=== PATIENT | female | born 1960 | race Hispanic/Latino ===

== ENCOUNTER 2017-05-06 09:56 | Emergency (ER) | payer OTHER ==
[2017-05-06 11:05] LABS: Urine Blood NEGATIVE (NEG); Urine Glucose NEGATIVE (NEG); Urine Protein TRACE (NEG); Urine Specific Gravity 1.025 (1.005-1.030)
[2017-05-06] MEDS ORDERED: HYDROCODONE/APAP 5/325 MG TAB ONE (11:27)
--- NOTE | 2017-05-06 11:52 | EDPHYS ---
Physician Documentation [facility] Name: Liset Langford Age: 57 yrs Sex: Female : 1960 Arrival Date: 05/06/2017 Time: 10:00 Bed 16 Private MD: ED Physician Troy Pereira HPI: 05/06 11:39 This 57 yrs old Female presents to ER via Ambulatory with complaints of Leg kb Pain. 11:39 The patient presents with pain, that is acute. The complaints affect the right knee. kb Context: The problem was sustained at home, resulted from an unknown cause, the patient is not able to bear weight, the patient is able to ambulate. Onset: The symptoms/episode began/occurred and became worse today, months ago. Modifying factors: The symptoms are alleviated by nothing. the symptoms are aggravated by weight bearing. Associated signs and symptoms: The patient has no apparent associated signs or symptoms. Treatment prior to arrival includes: no previous treatment. Severity of symptoms: At their worst the symptoms were moderate, in the emergency department the symptoms have improved. The patient has experienced similar episodes in the past. The patient has not recently seen a physician. Pt states she has had right knee pain for a few months, but today she was getting into a truck and felt/heard a loud pop. States she has been seen multiple times at the clinic for this and was supposed to have a x-ray done, but hasn't because of the copay. Historical: - Allergies: 10:13 No Known Allergies; hj - Home Meds: 10:13 carvedilol 6.25 mg oral tab 1 tab 2 times per day [Active]; diclofenac potassium 50 mg hj oral tab 1 tab 3 times per day [Active]; amlodipine 10 mg tab 1 tab once daily [Active]; metformin 1,000 mg Oral tab 1 tab 2 times per day [Active]; lovastatin 10 mg Oral tab 1 tab once daily [Active]; lisinopril 20 mg Oral tab 1 tab twice a day [Active]; - PMHx: 10:13 Hypertension; Diabetes - NIDDM; hj - PSHx: 10:13 Cholecystectomy; Hysterectomy; hj - Immunization history:: Adult Immunizations up to date. - Social history:: Smoking status: Patient/guardian denies using tobacco, never smoked, Patient/guardian denies using alcohol. ROS: 10:43 Constitutional: Negative for fever, chills, and weight loss, Cardiovascular: Negative kb for chest pain, palpitations, and edema, Respiratory: Negative for shortness of breath, cough, wheezing, and pleuritic chest pain, Abdomen/GI: Negative for abdominal pain, nausea, vomiting, diarrhea, and constipation, Back: Negative for injury and pain, Skin: Negative for injury, rash, and discoloration, Neuro: Negative for headache, weakness, numbness, tingling, and seizure. 10:43 MS/extremity: Positive for pain, of the right knee. Exam: 11:39 Constitutional: This is a well developed, well nourished patient who is awake, alert, kb and in no acute distress. Head/Face: Normocephalic, atraumatic. Chest/axilla: Normal chest wall appearance and motion. Nontender with no deformity. No lesions are appreciated. Cardiovascular: Regular rate and rhythm with a normal S1 and S2. No gallops, murmurs, or rubs. Normal PMI, no JVD. No pulse deficits. Respiratory: Lungs have equal breath sounds bilaterally, clear to auscultation and percussion. No rales, rhonchi or wheezes noted. No increased work of breathing, no retractions or nasal flaring. Abdomen/GI: Soft, non-tender, with normal bowel sounds. No distension or tympany. No guarding or rebound. No evidence of tenderness throughout. Skin: Warm, dry with normal turgor. Normal color with no rashes, no lesions, and no evidence of cellulitis. MS/ Extremity: Pulses equal, no cyanosis. Neurovascular intact. Full, normal range of motion. Neuro: Awake and alert, GCS 15, oriented to person, place, time, and situation. Cranial nerves II-XII grossly intact. Motor strength 5/5 in all extremities. Sensory grossly intact. Cerebellar exam normal. Normal gait. Vital Signs: 10:13 BP 149 / 78; Pulse 68; Resp 18; Temp 98.1(TE); Pulse Ox 98% on R/A; Weight 79.83 kg; hj Height 5 ft. 0 in. (152.40 cm); Pain 10/10; 11:12 BP 128 / 79; Pulse 77; Resp 16; Pulse Ox 94% on R/A; mh5 11:53 BP 122 / 68; Pulse 74; Resp 16 S; Pulse Ox 100% on R/A; Pain 6/10; jtb 10:13 Body Mass Index 34.37 (79.83 kg, 152.40 cm) hj MDM: 10:17 Patient medically screened. kb 11:39 Data reviewed: vital signs, nurses notes. Data interpreted: Pulse oximetry: on room air kb is 94 %. Interpretation: normal. Counseling: I had a detailed discussion with the patient and/or guardian regarding: the historical points, exam findings, and any diagnostic results supporting the discharge/admit diagnosis, radiology results, the need for outpatient follow up, a family practitioner, to return to the emergency department if symptoms worsen or persist or if there are any questions or concerns that arise at home. 05/06 10:50 Order name: Urine Dipstick--Ancillary (enter results) ms 05/06 10:50 Order name: Urine --Ancillary (enter results) ms 05/06 10:25 Order name: Knee Right 3 View XRAY kb 05/06 11:05 Order name: Urine --Ancillary; Complete Time: 11:06 [facility] 05/06 11:05 Order name: Urine Dipstick-Ancillary; Complete Time: 11:06 [facility] 05/06 11:52 Order name: Ash Wrap; Complete Time: 12:04 kb Administered Medications: 11:15 Drug: [place] 5 mg-325 mg 1 tabs Route: PO; jl7 11:55 Follow up: Response: No adverse reaction; Pain is decreased jl7 Disposition: 18:44 Co-signature as Attending Physician, Troy Pereira MD. ma2 Disposition: 05/06/17 11:51 Discharged to Home. Impression: Pain in right knee. - Condition is Stable. - Discharge Instructions: Knee Pain, [id number]. - Medication Reconciliation Form, Thank You Letter, Antibiotic Education, Prescription Opioid Use form. - Follow up: Emergency Department; When: As needed; Reason: Worsening of condition. Follow up: Private Physician; When: 2 - 3 days; Reason: Recheck today's complaints, Continuance of care, Re-evaluation by your physician. Signatures: Dis[facility] Janay Traore, JEFFC STEPHANIE-Jaspreet Wilson RN RN hj Leal, Jahala, RN RN jl7 Troy Pereira MD MD ma2 Brody Segura jtb
--- NOTE | 2017-05-06 11:52 | ER ---
Nurse's Notes [facility] Name: Liset Langford Age: 57 yrs Sex: Female : 1960 Arrival Date: 05/06/2017 Time: 10:00 Bed 16 Private MD: Diagnosis: Pain in right knee Presentation: 05/06 10:09 Presenting complaint: Mother states: she went into my husbands truck today, she heard a hj popped on the R knee, so shes says shes hurting from the back of the knee sown to the lower leg; reports swelling and pain of 10/10;. Transition of care: patient was not received from another setting of care. Onset of symptoms was May 06, 2017. Care prior to arrival: None. 10:09 Method Of Arrival: Ambulatory hj 10:09 Acuity: MUSA 4 hj Triage Assessment: 10:13 General: Appears in no apparent distress. uncomfortable, Behavior is calm, cooperative, hj appropriate for age. Pain: Complains of pain in right leg. Historical: - Allergies: 10:13 No Known Allergies; hj - Home Meds: 10:13 carvedilol 6.25 mg oral tab 1 tab 2 times per day [Active]; diclofenac potassium 50 mg hj oral tab 1 tab 3 times per day [Active]; amlodipine 10 mg tab 1 tab once daily [Active]; metformin 1,000 mg Oral tab 1 tab 2 times per day [Active]; lovastatin 10 mg Oral tab 1 tab once daily [Active]; lisinopril 20 mg Oral tab 1 tab twice a day [Active]; - PMHx: 10:13 Hypertension; Diabetes - NIDDM; hj - PSHx: 10:13 Cholecystectomy; Hysterectomy; hj - Immunization history:: Adult Immunizations up to date. - Social history:: Smoking status: Patient/guardian denies using tobacco, never smoked, Patient/guardian denies using alcohol. Screenin:25 Abuse screen: Denies threats or abuse. Denies injuries from another. Nutritional jtb screening: No deficits noted. Nutritional screening: No deficits noted. Tuberculosis screening: No symptoms or risk factors identified. Fall Risk Fall in past 12 months (25 points). Total Miranda Fall Scale indicates Low Risk Score (25-44 pts). Fall prevention measures have been instituted. Placed close to Nursing Station Frequent Obs/Assesments occuring Family Present and informed to notify staff if they need to leave bedside. Assessment: 10:25 General: Appears in no apparent distress. uncomfortable, Behavior is calm, cooperative, jtb appropriate for age. Pain: Complains of pain in right knee Pain does not radiate. Pain currently is 8 out of 10 on a pain scale. at worst was 10 out of 10 on a pain scale. Quality of pain is described as throbbing, Pain began 1 month Is continuous. Neuro: Level of Consciousness is awake, alert, obeys commands, Oriented to person, place, time, situation. Cardiovascular: Patient's skin is warm and dry. Respiratory: Airway is patent Respiratory effort is even, unlabored, Respiratory pattern is regular, symmetrical. GI: No signs and/or symptoms were reported involving the gastrointestinal system. : No signs and/or symptoms were reported regarding the genitourinary system. EENT: No signs and/or symptoms were reported regarding the EENT system. Derm: Skin is intact, Skin is pink, warm \T\ dry. 10:25 Musculoskeletal: Range of motion: limited in right knee. jtb 11:18 Reassessment: Patient appears in no apparent distress at this time. Patient and/or jtb family updated on plan of care and expected duration. Pain level reassessed. Patient is alert, oriented x 3, equal unlabored respirations, skin warm/dry/pink. Pt is resting in bed with family at the bedside. 11:53 Reassessment: Patient appears in no apparent distress at this time. Patient and/or jtb family updated on plan of care and expected duration. Pain level reassessed. Patient is alert, oriented x 3, equal unlabored respirations, skin warm/dry/pink. Reports pain decrease to 6/10 Patient states feeling better. Vital Signs: 10:13 BP 149 / 78; Pulse 68; Resp 18; Temp 98.1(TE); Pulse Ox 98% on R/A; Weight 79.83 kg; hj Height 5 ft. 0 in. (152.40 cm); Pain 10/10; 11:12 BP 128 / 79; Pulse 77; Resp 16; Pulse Ox 94% on R/A; mh5 11:53 BP 122 / 68; Pulse 74; Resp 16 S; Pulse Ox 100% on R/A; Pain 6/10; jtb 10:13 Body Mass Index 34.37 (79.83 kg, 152.40 cm) ED Course: 10:00 Patient arrived in ED. rg4 10:11 Triage completed. hj 10:13 Arm band placed on left wrist. hj 10:17 Janay Traore FNP-C [facility]. kb 10:17 Troy Pereira MD is Attending Physician. kb 10:19 Remy Wynn, RN is Primary Nurse. jl7 10:25 Patient has correct armband on for positive identification. Call light in reach. Pt is jtb sitting in a wheel chair, family is present. Pulse ox on. NIBP on. 10:45 Side rails up X 1. jtb 11:00 X-ray completed. Portable x-ray completed in exam room. Patient tolerated procedure la2 well. 12:05 No provider procedures requiring assistance completed. Patient did not have IV access jtb during this emergency room visit. Administered Medications: 11:15 Drug: [place] 5 mg-325 mg 1 tabs Route: PO; jl7 11:55 Follow up: Response: No adverse reaction; Pain is decreased jl7 Outcome: 11:51 Discharge ordered by MD. kb 12:04 Attestation : I agree with everything documented Brody Segura, Student Nurse. jl7 12:05 Discharged to home ambulatory. jtb 12:05 Condition: stable 12:05 Discharge instructions given to patient, family, Instructed on discharge instructions, follow up and referral plans. Demonstrated understanding of instructions, follow-up care. 12:05 Patient left the ED. jtb Signatures: Janay Traore FNP-C APPLICATION SUPPORT-Ckb Jaspreet London, RN RN Miracle Pinon rg4 Liset Perez [facility] Remy Wynn, RN RN jl7 Mariana Chen la2 Brody Segura jtb Corrections: (The following items were deleted from the chart) 10:15 10:13 Pulse 68bpm; Resp 18bpm; Pulse Ox 98% RA; Temp 98.1F Temporal; 79.83 kg; Height 5 hj ft. 0 in.; BMI: 34.3; Pain 10/10; hj 10:34 10:25 Fall Risk Fall in past 12 months (25 points). Total Miranda Fall Scale indicates jtb Low Risk Score (25-44 pts). Fall prevention measures have been instituted. Side Rails Up X 2 Placed close to Nursing Station Frequent Obs/Assesments occuring Family Present and informed to notify staff if they need to leave bedside jtb
--- NOTE | 2017-05-06 12:31 | RAD REPORT ---
EXAM DESCRIPTION: RAD - Knee Right 3 View - 05/06/2017 11:34 am CLINICAL HISTORY: Right knee pain FINDINGS: No fracture or dislocation is seen. A small joint effusion may be present If the patient continues have symptoms to suggest an occult fracture, ligamentous,tendon or meniscal injury then an MRI would be recommended.
== END 2017-05-06 12:05 | disposition home or self-care (01) ==
LOC: ER 09:56
DX: M25.561 Pain in right knee (principal); I10 Essential (primary) hypertension; E11.9 Type 2 diabetes mellitus without complications
CPT/HCPCS: 81003; 81025; 99283

== ENCOUNTER 2018-05-05 20:08 | Emergency (ER) | payer OTHER ==
--- OUTSIDE RECORDS SUMMARY | 2018-05-05 20:10 | XMS REPORT ---
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 51371837754 18 MG/3ML Apr 16, Active 0.6mg once Subcutaneous 2019 daily x 1wk, Once daily then 1.2mg once daily. May increase to 1.8mg daily if tolerated Results No Known Results Summary Purpose eClinicalWorks Submission
--- OUTSIDE RECORDS SUMMARY | 2018-05-05 20:10 | XMS REPORT ---
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 88303334129 1000 MG Orally Active 1 tablet Twice a day with a meal Lisinopril [facility] 59749959424 20 MG Orally Active 1 tablet Once a day [place] 52513238537 5 MG Orally Once Oct 09, Active 1 tablet a day [address] [facility] 82464380319 20 MG Orally Active 1 tablet Once a day with the evening meal Carvedilol [facility] 68789054790 6.25 MG Orally Active 1 tablet BID Results No Known Results Summary Purpose eClinicalWorks Submission
--- OUTSIDE RECORDS SUMMARY | 2018-05-05 20:10 | XMS REPORT ---
:1960 Author Organization [employer] Care Team Providers Name Role Phone Ok Edmond Provider Role Unavailable Allergies, Adverse Reactions, Alerts Substance Reaction Event Type N.K.D.A. Info Not Available Non Drug Allergy Problems Problem Type Condition Code Onset Dates Condition Status Assessment Screening mammogram, encounter for Z12.31 Active Assessment HTN, goal below 130/80 I10 Active Assessment Encounter for screening for other Z11.59 Active viral diseases Assessment Screening for colon cancer Z12.11 Active Problem Uncontrolled diabetes mellitus type E11.65 Active 2 without complications, unspecified whether [facility] insulin use Problem HTN, goal below 130/80 I10 Active Problem Mixed hyperlipidemia E78.2 Active Assessment Uncontrolled diabetes mellitus type E11.65 Active 2 without complications, 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 Assessment Mixed hyperlipidemia E78.2 Active Assessment Encounter for preventative adult Z00.01 Active health care exam with abnormal findings Medications Medication Code Code Instructions Start End Status Dosage System Date Date Lisinopril [facility] 84045329186 10 MG Orally Active 1 tablet Once a day Carvedilol [facility] 77608961598 6.25 MG Orally Active 1 tablet BID Metformin HCl ND 76741937366 1000 MG Orally Active 1 tablet Twice a day with a meal Lovastatin [facility] 27338420770 10 MG Orally Active 1 tablet Once a day with the evening meal Results No Known Results Summary Purpose eClinicalWorks Submission
--- OUTSIDE RECORDS SUMMARY | 2018-05-05 20:10 | XMS REPORT ---
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 03940322488 5 MG Orally Active 1 tablet Once a day Lisinopril/HCT [facility] 90734664383 20/12.5 PO BID July 03, Active one tablet Z 2019 Pen Olivia [facility] 48206935682 32G X 4 MM Apr 18, Active use once subcutaneous 2018 daily with once daily Victoza Carvedilol [facility] 63557975784 6.25 MG Orally Active 1 tablet BID Tradjenta [facility] 49147465088 5 MG Orally Active 1 tablet Once a day Carvedilol [facility] 67239210392 6.25 MG Orally Active 1 tablet BID Lovastatin [facility] 56989290033 20 MG Orally Active 1 tablet Once a day with the evening meal Victoza [facility] 30702492876 18 MG/3ML Apr 16, Active 0.6mg once Subcutaneous 2019 daily x 1wk, Once daily then 1.2mg once daily. May increase to 1.8mg daily if tolerated Metformin HCl [facility] 49297573200 1000 MG Orally Active 1 tablet Twice a day with a meal Results No Known Results Summary Purpose eClinicalWorks Submission
--- OUTSIDE RECORDS SUMMARY | 2018-05-05 20:10 | XMS REPORT ---
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
--- OUTSIDE RECORDS SUMMARY | 2018-05-05 20:10 | XMS REPORT ---
:1960 Author Organization eClinicalWorks Care Team Providers Name Role Phone Ok Edmond Provider Role Unavailable Allergies No Known Allergies Problems Problem Type Condition Code Onset Dates Condition Status Problem Thrombocytopenia D69.6 Active Problem Mixed hyperlipidemia E78.2 Active Problem Noncompliance with dietary Z91.11 Active restriction Assessment Uncontrolled diabetes mellitus type E11.65 Active 2 without complications, unspecified whether meterman insulin use Problem Uncontrolled diabetes mellitus type E11.65 Active 2 without complications, unspecified whether skilled nursing insulin use Problem HTN, goal below 130/80 I10 Active Medications Medication Code Code Instructions Start End Status Dosage System Date Date Jardiance [facility] 21335643840 10 MG Orally Apr 04, July 03, Inactive 1 tablet Once a day 2018 2018 Victoza [facility] 87529091272 18 MG/3ML Apr 16, Active 0.6 mg once Subcutaneous 2018 weekly for 4 Once weekly weeks, then 1.2mg once weekly. May increase to 1.8mg as tolerated Results No Known Results Summary Purpose eClinicalWorks Submission
--- NOTE | 2018-05-05 22:55 | ER ---
Nurse's Notes [facility] Name: Liset Langford Age: 58 yrs Sex: Female : 1960 Arrival Date: 05/05/2018 Time: 20:08 Bed 17 Private MD: Ok Edmond Diagnosis: Zoster without complications Presentation: 05/05 20:59 Presenting complaint: Patient states: left flank pain x 3 days, denies nausea vomiting, dm5 feels kind of like a rash but there isn't anything there. Transition of care: patient was not received from another setting of care. Onset of symptoms was May 01, 2018. Risk Assessment: Do you want to hurt yourself or someone else? Patient reports no desire to harm self or others. 20:59 Method Of Arrival: Ambulatory dm5 20:59 Acuity: MUSA 3 dm5 21:02 Presenting complaint:. dm5 22:27 Initial Sepsis Screen: Does the patient meet any 2 criteria? No. Patient's initial cc3 sepsis screen is negative. Does the patient have a suspected source of infection? No. Patient's initial sepsis screen is negative. Care prior to arrival: None. Triage Assessment: 21:02 General: Appears in no apparent distress. Behavior is calm, cooperative. Pain: dm5 Complains of pain in left subscapular area, mid back area and left lateral posterior chest. 22:27 Musculoskeletal: Circulation, motion, and sensation intact. Range of motion: intact in cc3 all extremities. Historical: - Allergies: 21:00 No Known Allergies; dm5 - PMHx: 21:00 Diabetes - NIDDM; Hypertension; dm5 - PSHx: 21:00 Hysterectomy; dm5 - Immunization history:: Adult Immunizations not up to date. - Social history:: Smoking status: Patient/guardian denies using tobacco, never smoked. - Ebola Screening: : No symptoms or risks identified at this time. Screenin:27 Abuse screen: Denies threats or abuse. Denies injuries from another. Nutritional cc3 screening: No deficits noted. Tuberculosis screening: No symptoms or risk factors identified. Fall Risk Ambulatory Aid- None/Bed Rest/Nurse Assist (0 pts). Gait- Normal/Bed Rest/Wheelchair (0 pts) Mental Status- Oriented to own ability (0 pts). Assessment: 22:27 General: Appears in no apparent distress. comfortable. Pain: Complains of pain in left cc3 lateral anterior chest and chest and back and left lateral posterior chest and mid back area and left subscapular area. Neuro: Level of Consciousness is awake, alert, obeys commands, Oriented to person, place, time, situation, Appropriate for age. Cardiovascular: Denies chest pain, Patient's skin is warm and dry. Respiratory: Airway is patent Respiratory effort is even, unlabored, Respiratory pattern is regular, symmetrical. GI: Abdomen is round non-distended. : No signs and/or symptoms were reported regarding the genitourinary system. EENT: No signs and/or symptoms were reported regarding the EENT system. Derm: No signs and/or symptoms reported regarding the dermatologic system. Musculoskeletal: Circulation, motion, and sensation intact. Range of motion: intact in all extremities. 23:10 Reassessment: Patient appears in no apparent distress at this time. Patient and/or cc3 family updated on plan of care and expected duration. Pain level reassessed. Patient is alert, oriented x 3, equal unlabored respirations, skin warm/dry/pink. ADARSH Chatman discharged the patient home with prescription given. No IV cannula in situ. Patient left ER vitally stable and ambulatory with her family. Vital Signs: 21:01 BP 181 / 90; Pulse 71; Resp 12; Temp 97.8; Pulse Ox 98% on R/A; Weight 83.01 kg; Height dm5 5 ft. 0 in. (152.40 cm); Pain 8/10; 22:40 BP 169 / 71; Pulse 63; Resp 17 S; Pulse Ox 97% on R/A; cc3 23:00 BP 168 / 69; Pulse 61; Resp 18 S; Pulse Ox 97% on R/A; cc3 21:01 Body Mass Index 35.74 (83.01 kg, 152.40 cm) dm5 ED Course: 20:08 Patient arrived in ED. am2 20:09 Ok Edmond DO is Private Physician. am2 20:41 [facility]urdes New[facility]C [facility] snw 20:41 Trent Bagley MD is Attending Physician. snw 21:00 Triage completed. dm5 21:01 Arm band placed on right wrist. Patient placed in waiting room. dm5 22:27 Joan West is Primary Nurse. cc3 22:27 Patient has correct armband on for positive identification. Bed in low position. Call cc3 light in reach. Side rails up X 1. Pulse ox on. NIBP on. 22:52 Warm blanket given. Pillow given. jp3 22:52 Urine collected: clean catch specimen, clear, reza colored. jp3 22:52 Urine Dipstick--Ancillary (enter results) Sent. jp3 22:52 Urine Microscopic Only Sent. jp3 22:54 Ok Edmond DO is Referral Physician. snw 23:10 No provider procedures requiring assistance completed. Patient did not have IV access cc3 during this emergency room visit. Administered Medications: 23:00 Drug: [place] 5 mg-325 mg 1 tabs Route: PO; cc3 23:10 Follow up: Response: No adverse reaction; Pain is decreased cc3 23:00 Drug: Acyclovir 800 mg Route: PO; cc3 23:10 Follow up: Response: No adverse reaction cc3 Outcome: 22:54 Discharge ordered by MD. snw 23:10 Discharged to home ambulatory, with family. cc3 23:10 Condition: stable 23:10 Discharge instructions given to patient, family, Instructed on discharge instructions, follow up and referral plans. medication usage, Demonstrated understanding of instructions, follow-up care, medications, Prescriptions given X 1. 23:21 Patient left the ED. cc3 Signatures: Tete Low, RN RN dm5 Lurdes Newell, C PROGRAMMER-C C PROGRAMMER-Csnw Jaylyn Mcgraw Jacob jp3 Joan West cc3 Corrections: (The following items were deleted from the chart) 21:03 20:59 Presenting complaint: Patient states: left flank pain x 3 days, denies nausea dm5 vomiting dm5
--- NOTE | 2018-05-05 22:55 | EDPHYS ---
Physician Documentation [facility] Name: Liset Langford Age: 58 yrs Sex: Female : 1960 Arrival Date: 05/05/2018 Time: 20:08 Bed 17 Private MD: Ok Edmond ED Physician Trent Bagley HPI: 05/05 23:38 This 58 yrs old Female presents to ER via Ambulatory with complaints of Flank snw Pain, Back Pain, rib pain. 23:38 The patient complains of pain in the left subscapular area. The pain radiates to the snw left lateral anterior chest. Onset: The symptoms/episode began/occurred suddenly, 2 day(s) ago, and became persistent. Associated signs and symptoms: The patient has no apparent associated signs or symptoms. Severity of pain: At its worst the pain was moderate severe. The patient has not experienced similar symptoms in the past. It is unknown whether or not the patient has recently seen a physician. Historical: - Allergies: 21:00 No Known Allergies; dm5 - PMHx: 21:00 Diabetes - NIDDM; Hypertension; dm5 - PSHx: 21:00 Hysterectomy; dm5 - Immunization history:: Adult Immunizations not up to date. - Social history:: Smoking status: Patient/guardian denies using tobacco, never smoked. - Ebola Screening: : No symptoms or risks identified at this time. ROS: 23:37 Constitutional: Negative for fever, chills, and weight loss, Eyes: Negative for injury, snw pain, redness, and discharge, ENT: Negative for injury, pain, and discharge, Neck: Negative for injury, pain, and swelling, Cardiovascular: Negative for chest pain, palpitations, and edema, Respiratory: Negative for shortness of breath, cough, wheezing, and pleuritic chest pain, Abdomen/GI: Negative for abdominal pain, nausea, vomiting, diarrhea, and constipation, Back: Negative for injury and pain, : Negative for injury, bleeding, discharge, and swelling, Skin: Negative for injury, rash, and discoloration, Neuro: Negative for headache, weakness, numbness, tingling, and seizure. 23:37 MS/extremity: Positive for paresthesias, of the left upper back, axilla, and under left breast with itching and burning pain. Exam: 23:36 Constitutional: This is a well developed, well nourished patient who is awake, alert, snw and in no acute distress. Head/Face: Normocephalic, atraumatic. Eyes: Pupils equal round and reactive to light, extra-ocular motions intact. Lids and lashes normal. Conjunctiva and sclera are non-icteric and not injected. Cornea within normal limits. Periorbital areas with no swelling, redness, or edema. ENT: Nares patent. No nasal discharge, no septal abnormalities noted. Tympanic membranes are normal and external auditory canals are clear. Oropharynx with no redness, swelling, or masses, exudates, or evidence of obstruction, uvula midline. Mucous membranes moist. Neck: Trachea midline, no thyromegaly or masses palpated, and no cervical lymphadenopathy. Supple, full range of motion without nuchal rigidity, or vertebral point tenderness. No Meningismus. Cardiovascular: Regular rate and rhythm with a normal S1 and S2. No gallops, murmurs, or rubs. Normal PMI, no JVD. No pulse deficits. Respiratory: Lungs have equal breath sounds bilaterally, clear to auscultation and percussion. No rales, rhonchi or wheezes noted. No increased work of breathing, no retractions or nasal flaring. Abdomen/GI: Soft, non-tender, with normal bowel sounds. No distension or tympany. No guarding or rebound. No evidence of tenderness throughout. Back: No spinal tenderness. No costovertebral tenderness. Full range of motion. Skin: Warm, dry with normal turgor. Normal color with no rashes, no lesions, and no evidence of cellulitis. MS/ Extremity: Pulses equal, no cyanosis. Neurovascular intact. Full, normal range of motion. Neuro: Awake and alert, GCS 15, oriented to person, place, time, and situation. Cranial nerves II-XII grossly intact. Motor strength 5/5 in all extremities. Sensory grossly intact. Cerebellar exam normal. Normal gait. 23:36 Chest/axilla: Inspection: normal, Palpation: tenderness, that is moderate, of the left lateral posterior chest and left lateral anterior chest. Vital Signs: 21:01 BP 181 / 90; Pulse 71; Resp 12; Temp 97.8; Pulse Ox 98% on R/A; Weight 83.01 kg; Height dm5 5 ft. 0 in. (152.40 cm); Pain 8/10; 22:40 BP 169 / 71; Pulse 63; Resp 17 S; Pulse Ox 97% on R/A; cc3 23:00 BP 168 / 69; Pulse 61; Resp 18 S; Pulse Ox 97% on R/A; cc3 21:01 Body Mass Index 35.74 (83.01 kg, 152.40 cm) dm5 MDM: 22:38 Patient medically screened. snw 23:38 Data reviewed: vital signs, nurses notes. Data interpreted: Pulse oximetry: on room air snw is 97 %. Interpretation: normal. Counseling: I had a detailed discussion with the patient and/or guardian regarding: the historical points, exam findings, and any diagnostic results supporting the discharge/admit diagnosis, the need for outpatient follow up, to return to the emergency department if symptoms worsen or persist or if there are any questions or concerns that arise at home. Special discussion: I have referred the patient to see his PCP for further evaluation of high blood pressure. Based on the history and exam findings, there is no indication for further emergent testing or inpatient evaluation. I discussed with the patient/guardian the need to see the primary care provider for further evaluation of the symptoms. 05/05 22:47 Order name: Urine Microscopic Only fc 05/05 22:50 Order name: Urine Dipstick--Ancillary (enter results) lt1 Administered Medications: 23:00 Drug: [place] 5 mg-325 mg 1 tabs Route: PO; cc3 23:10 Follow up: Response: No adverse reaction; Pain is decreased cc3 23:00 Drug: Acyclovir 800 mg Route: PO; cc3 23:10 Follow up: Response: No adverse reaction cc3 Disposition: 05/06 06:26 Co-signature as Attending Physician, Trent Bagley MD Available for consultation at ps1 all times . Disposition: 05/05/18 22:54 Discharged to Home. Impression: Zoster without complications. - Condition is Stable. - Discharge Instructions: Neuropathic Pain, Shingles. - Prescriptions for Valtrex 1 g Oral Tablet - take 1 tablet by ORAL route every 8 hours for 7 days; 21 tablet. - Medication Reconciliation Form, Thank You Letter, Antibiotic Education, Prescription Opioid Use form. - Follow up: Ok Edmond, DO; When: 2 - 3 days; Reason: Recheck today's complaints, Continuance of care, Re-evaluation by your physician. Follow up: Emergency Department; When: As needed; Reason: Worsening of condition. Signatures: Dispatcher [employer] Tete White, RN RN dm5 Lurdes Newell, EMS EDUCATOR-C EMS EDUCATOR-Csnw Trent Bagley MD MD ps1 Joan West cc3 Corrections: (The following items were deleted from the chart) 05/05 23:21 22:54 05/05/2018 22:54 Discharged to Home. Impression: Zoster without complications. cc3 Condition is Stable. Forms are Medication Reconciliation Form, Thank You Letter, Antibiotic Education, Prescription Opioid Use. Follow up: [facility]; When: 2 - 3 days; Reason: Recheck today's complaints, Continuance of care, Re-evaluation by your physician. Follow up: Emergency Department; When: As needed; Reason: Worsening of condition. snw
[2018-05-05] MEDS ORDERED: HYDROCODONE/APAP 5/325 MG TAB ONE (23:15)
[2018-05-05] MEDS ORDERED: ACYCLOVIR 400 MG TABLET ONE (23:15)
[2018-05-05 23:53] LABS: Urine Bacteria 20-50 /HPF (<20); Urine Culture Reflex Order REFLEXED; Urine RBC <5 /HPF (NONE SEEN); Urine Yeast FEW (NONE SEEN)
[2018-05-05 23:56] LABS: Urine Blood TRACE (NEG); Urine Glucose 2+ (NEG); Urine Protein NEGATIVE (NEG)
== END 2018-05-05 23:21 | disposition home or self-care (01) ==
LOC: ER 20:08
DX: B02.9 Zoster without complications (principal); E11.9 Type 2 diabetes mellitus without complications; I10 Essential (primary) hypertension
CPT/HCPCS: 81003; 81015; 87086; 87088; 99284

== ENCOUNTER 2020-06-24 14:25 | Emergency (ER) | payer BC ==
--- OUTSIDE RECORDS SUMMARY | 2020-06-24 14:28 | XMS REPORT | Continuity of Care Document ---
:1960 Author Organization [facility] t Address [address] [place] [address] Care Team Providers Name Role Phone Unavailable Unavailable Unavailable Problems This patient has no known problems. Allergies, Adverse Reactions, Alerts This patient has no known allergies or adverse reactions. Medications Ordered Filled Start Stop Current Ordering Indication Dosage Frequency Signature Comments Components Source Medication Medication Date Date Medication? Clinician (SIG) Name Name GlipiZIDE GlipiZIDE 0 Yes Ok [address] [facility] 30 minutes [facility] Pen [place] Pen [place] 0 Yes Ok use once [facility] daily with [facility]: Victoza [facility] 00 l [facility] Metformin Metformin Yes Ok [address] [facility] HCl HCl [facility] with a [facility] - meal [facility] Lovastatin Lovastatin Yes Ok [address] [facility] with the [facility] - evening [facility] meal l [facility] Lisinopril- Lisinopril- Yes Ok take one [facility] Hydrochloro Hydrochloro [facility] -1 [facility] - thiazide thiazide tablet(s) Me moria by mouth l twice a Outpati day. ent Clinics Carvedilol Carvedilol Yes Ok [address] [facility] Lovastatin Lovastatin Yes Ok TAKE ONE [facility] (1) [facility] - TABLET(S) [facility] BY MOUTH l ONCE A DAY Outpati WITH THE ent EVENING Clinics MEAL. Immunizations Ordered Filled Immunization Date Status Comments [facility] e Immunization Name Name TDAP > 7 TDAP > 7 2019-05-[address] [facility] - Years-Adacel Years-Adacel 00:00:[address] [facility] Afluria Afluria 2018-11-[address] [facility] - 00:[facility]00 [facility] Procedures This patient has no known procedures. Encounters Start End Encounter Admission Attending Care Care Encounter Source Date/Time Date/Time Type Type Clinicians Facility Department ID 2020-05-05 2020-05-05 Outpatient [facility] [id number] [facility] 2020-02-06 2020-02-06 Outpatient [facility] [id number] [facility] 2019-11-12 2019-11-12 Outpatient [facility] [id number] [facility] 2019-11-07 2019-11-07 [facility] [id number] [facility] 08:50:00 08:50:00 [employer] [facility] l Medicine Outpati ent Clinics 2019-08-08 2019-08-08 [facility] [id number] 15:01:00 15:01:00 [employer] [facility] Medicine Outpati ent Clinics 2019-08-08 2019-08-08 [facility] [id number] 14:52:00 14:52:00 t [employer] [facility] l Medicine Outpati ent Clinics 2019-08-08 2019-08-08 [facility] [id number] [facility] 14:15:00 14:15:00 [employer] [facility] Medicine Outpati ent Clinics 2019-07-01 2019-07-01 [facility] [id number] [facility] 14:23:00 14:23:00 [employer] [facility] Medicine l Medicine Outpati ent Clinics 2019-05-09 2019-05-09 [facility] [id number] 14:30:00 14:30:00 [place] [employer] [address] - [address] [facility] l Medicine Outpati ent Clinics 2019 2019 [facility] [id number] 10:11:00 10:11:00 t [place] [employer] [address] - [address] [facility] Medicine l Medicine Outpati ent Clinics 2019-02-27 2019-02-27 [facility] [id number] 14:27:00 14:27:00 t [place] [employer] [address] - [address] [facility] l Medicine Outpati ent Clinics 2019-02-08 2019-02-08 [facility] [id number] 10:45:00 10:45:00 t [place] [employer] [address] - [address] [facility] Medicine l Medicine Outpati ent Clinics 2019-01-30 2019-01-30 [facility] [id number] 16:53:00 16:53:00 t [place] [employer] - Drive [facility] Medicine l Medicine Outpati ent Clinics 2018-11-02 2018-11-02 [facility] [id number] 09:37:00 09:37:00 t [place] [employer] [address] - [address] [facility] Medicine l Medicine Outpati ent Clinics 2018-11-01 2018-11-01 [facility] [id number] 14:00:00 14:00:00 t [place] [employer] [address] - [address] [facility] Medicine l Medicine Outpati ent Clinics 2018-10-30 2018-10-30 [facility] [id number] 13:58:00 13:58:00 t [place] [employer] [address] - [address] [facility] Medicine l Medicine Outpati ent Clinics 2018-08-02 2018-08-02 [facility] [id number] 10:15:00 10:15:00 t [place] [employer] - Drive [facility] Medicine l Medicine Outpati ent Clinics 2018-05-10 2018-05-10 [facility] [id number] 10:00:00 10:00:00 t [place] [employer] - Drive [facility] Medicine Outpati ent Clinics 2018-04-18 2018-04-18 [facility] [id number] 14:00:00 14:00:00 [place] [address] [employer] - Drive [facility] Medicine Outpati ent Clinics 2018-04-17 2018-04-17 [facility] [id number] 14:52:00 14:52:00 t [place] [employer] - Drive [facility] Medicine Outpati ent Clinics 2018-04-16 2018-04-16 [facility] [id number] [facility] 14:04:00 14:04:00 t [place] [employer] - Drive [facility] Medicine Outpati ent Clinics 2018-04-12 2018-04-12 [facility] [id number] 08:49:00 08:49:00 t [place] [employer] - Drive [facility] Medicine Outpati ent Clinics 2017-10-09 2017-10-09 [facility] [id number] 14:30:00 14:30:00 t [place] [employer] s - Drive [facility] Medicine Outpati ent Clinics 2017-09-20 2017-09-20 [facility] [id number] 13:45:00 13:45:00 t [place] [employer] s - Drive [facility] Medicine Outpati ent Clinics Results This patient has no known results.
[2020-06-24] MEDS ORDERED: ACETAMINOPHEN 500 MG TAB ONE (15:21)
--- NOTE | 2020-06-24 15:32 | RAD REPORT ---
EXAM DESCRIPTION: RAD - Wrist Right 3 View - 06/24/2020 3:14 pm CLINICAL HISTORY: PAINfall with wrist pain COMPARISON: No comparisons FINDINGS: No fracture is identified. There is no dislocation or periosteal reaction noted. Sclerotic or increased bone density changes are present in the lunate bone. This can be an indication of devel oping Keinb[place] disease/AVN of the lunate. This would be unrelated to the acute event. No foreign body or other soft tissue abnormality. IMPRESSION: Negative right wrist examination for fracture or acute finding. Increased density of the lunate bone could be indication of [place] disease/AVN, unrelated to the cu rrent event.
--- NOTE | 2020-06-24 15:33 | RAD REPORT ---
EXAM DESCRIPTION: RAD - Elbow Right 3 View - 06/24/2020 3:14 pm CLINICAL HISTORY: PAIN, fall with elbow pain COMPARISON: None FINDINGS: No fracture is identified and no elevated posterior fat pad. Mild spurring changes are pre sent along the medial margin of the humerus - ulna articulation. There is no dislocation or periostea l reaction noted. No foreign body or other soft tissue abnormality. No other significant finding. IMPRESSION: Negative right elbow examination for fracture or acute finding.
--- NOTE | 2020-06-24 15:35 | RAD REPORT ---
EXAM DESCRIPTION: CT - [id number] - 06/24/2020 3:14 pm CLINICAL HISTORY: headache, fall, head trauma, facial trauma, neck pain COMPARISON: No comparisons TECHNIQUE: Axial 5 mm thick images of the head were obtained. Axial 2 mm thick images of the cervic al spine were obtained with sagittal and coronal reconstruction images generated and reviewed. All CT scans are performed using dose optimization technique as appropriate and may include automated exposure control or mA/KV adjustment according to patient size. FINDINGS: No intracranial hemorrhage, mass, edema or acute intracranial finding. No suspicion for ac tushar infarction. No extra-axial fluid collections. Mastoid air cells and paranasal sinuses are clear. No globe or orbit abnormality seen. Cervical body height and alignment are normal. No disk space narrowing. No fracture or acute bony abn ormality. Central canal detail is inherently limited. No paraspinal mass or hematoma. IMPRESSION: Negative CT head examination for acute or significant finding. Negative CT cervical spine examination for acute or significant finding.
--- NOTE | 2020-06-24 16:03 | ER ---
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 Coronavirus screen: Client denies travel out of the [place] in the last 14 days. At this time, the client does not indicate any symptoms associated with coronavirus-19. Ebola Screen: Patient negative for fever greater than or equal to 101.5 degrees Fahrenheit, and additional compatible Ebola Virus Disease symptoms. Initial Sepsis Screen: Does the patient meet any 2 criteria? No. Patient's initial sepsis screen is negative. Risk Assessment: Do you want to hurt yourself or someone else? Patient reports no desire to harm self or others. Onset of symptoms was June 24, 2020 at 14:15. 14:43 Method Of Arrival: EMS: [facility] 14:43 Acuity: MUSA 3 kl Triage Assessment: 14:53 General: Appears comfortable, well groomed, well developed, Behavior is calm, kl cooperative. Pain: Complains of pain in face and right eye Pain currently is 5 out of 10 on a pain scale. at worst was 8 out of 10 on a pain scale. Pain began 30 min ago. Aggravated by increased activity. EENT: Eyes swelling and bruising noted to right brow. Neuro: No deficits noted. Cardiovascular: No deficits noted. Reports None. Respiratory: No deficits noted. GI: No deficits noted. No signs and/or symptoms were reported involving the gastrointestinal system. : No deficits noted. No signs and/or symptoms were reported regarding the genitourinary system. Derm: Wound noted right elbow Bruising that is bright red, on right supraorbital ridge. Musculoskeletal: Reports pain in heel of left hand. Injury Description: fall. Historical: - Allergies: 14:52 No Known Allergies; kl - Home Meds: 14:52 amlodipine 10 mg tab 1 tab once daily [Active]; diclofenac potassium 50 mg Oral tab 1 kl tab 3 times per day [Active]; lovastatin 10 mg Oral tab 1 tab once daily [Active]; metformin 1,000 mg Oral tab 1 tab 2 times per day [Active]; - PMHx: 14:52 Diabetes - NIDDM; Hypertension; kl - PSHx: 14:52 None; kl - Immunization history:: Client reports receiving the 2nd dose of the Covid vaccine, Last tetanus immunization: not indicated for visit today. does not meet age requirement per her MD. Flu vaccine is up to date. - Social history:: Smoking status: Patient denies any tobacco usage or history of. Screenin:23 Abuse screen: Denies threats or abuse. Nutritional screening: No deficits noted. kl Tuberculosis screening: No symptoms or risk factors identified. Fall Risk Fall in past 12 months (25 points). Assessment: 16:01 General: Appears in no apparent distress. Behavior is calm, cooperative. Pain:. Neuro: kl No deficits noted. Cardiovascular: No deficits noted. Respiratory: No deficits noted. GI: No deficits noted. : No deficits noted. EENT: bruising to right eye. Musculoskeletal: Reports. Vital Signs: 14:43 BP 177 / 69; Pulse 78; Resp 18; Temp 98.1; Pulse Ox 99% ; Pain 8/10; kl 16:02 BP 177 / 77; Pulse 78; Resp 20; Pain 8/10; kl 16:21 BP 168 / 78; Pulse 82; Resp 18; Pulse Ox 99% ; Pain 4/10; kl ED Course: 14:43 Patient arrived in ED. kl 14:43 Ayden Gonzalez PA is PHCP. cp 14:43 Ayden Nicholas MD is Attending Physician. cp 14:46 Triage completed. kl 15:14 XRAY Elbow RIGHT 3 view In Process Unspecified. EDMS 15:14 XRAY Wrist RIGHT 3 view In Process Unspecified. EDMS 15:14 CT Head C Spine In Process Unspecified. EDMS 16:22 Splint applied. sling applied tolerated well. Bandage applied. kl 16:23 No provider procedures requiring assistance completed. Patient did not have IV access kl during this emergency room visit. Administered Medications: 15:05 Drug: Tylenol 1000 mg Route: PO; kl 16:21 Follow up: BP 168 / 78; Pulse 82 bpm; Resp 18 bpm; Pulse Ox 99% ; Pain 4/10 Adult kl Outcome: 16:03 Discharge ordered by . cp 16:23 Discharged to home ambulatory, with family. kl 16:23 Condition: stable 16:23 Discharge instructions given to patient, family, Instructed on discharge instructions, follow up and referral plans. wound care, wrist splint/sling Demonstrated understanding of instructions, follow-up care, medications, wound care, splint care. 17:09 Patient left the ED. aa5 Signatures: Dispatcher [employer] EDJessica Fink RN RN kl Calderon, Audri, RN RN aa5 Ayden Gonzalez, PA ANAIS cp
--- NOTE | 2020-06-24 16:03 | EDPHYS ---
Physician Documentation [facility] Name: Liset Langford Age: 60 yrs Sex: Female : 1960 Arrival Date: 06/24/2020 Time: 14:43 Bed 24 Private MD: MARIAM Physician Ayden Nicholas HPI: 06/24 14:50 This 60 yrs old Female presents to ER via EMS with complaints of Fall. cp 14:50 Details of fall: The patient fell from an upright position, while standing. Onset: The cp symptoms/episode began/occurred just prior to arrival. Associated injuries: The patient sustained injury to the head, contusion, swelling, tenderness, right elbow, abrasion, painful injury, swelling, right wrist, painful injury. Severity of symptoms: in the emergency department the symptoms are unchanged, despite EMS interventions. 14:50 Patient reports loosing balance at local store while in bathroom and falling, striking cp head and right elbow. Historical: - Allergies: 14:52 No Known Allergies; kl - Home Meds: 14:52 amlodipine 10 mg tab 1 tab once daily [Active]; diclofenac potassium 50 mg Oral tab 1 kl tab 3 times per day [Active]; lovastatin 10 mg Oral tab 1 tab once daily [Active]; metformin 1,000 mg Oral tab 1 tab 2 times per day [Active]; - PMHx: 14:52 Diabetes - NIDDM; Hypertension; kl - PSHx: 14:52 None; kl - Immunization history:: Client reports receiving the 2nd dose of the Covid vaccine, Last tetanus immunization: not indicated for visit today. does not meet age requirement per her MD. Flu vaccine is up to date. - Social history:: Smoking status: Patient denies any tobacco usage or history of. ROS: 15:00 Constitutional: Negative for body aches, chills, fever, poor PO intake. cp 15:00 Eyes: Negative for injury, pain, redness, and discharge. cp 15:00 ENT: Negative for ear pain, sore throat, difficulty swallowing, difficulty handling secretions. 15:00 Neck: Negative for pain with movement, pain at rest, stiffness. 15:00 Cardiovascular: Negative for chest pain, palpitations. 15:00 Respiratory: Negative for cough, shortness of breath, wheezing. 15:00 Abdomen/GI: Negative for abdominal pain, nausea, vomiting, and diarrhea. 15:00 Back: Negative for pain at rest, pain with movement. 15:00 MS/extremity: Positive for abrasion, pain, swelling, tenderness, of the right elbow, Negative for decreased range of motion, deformity. 15:00 Neuro: Positive for headache, Negative for altered mental status, loss of consciousness, seizure activity, syncope, weakness. 15:00 All other systems are negative. Exam: 15:05 Constitutional: The patient appears in no acute distress, alert, awake, cp non-diaphoretic, non-toxic, well developed, well nourished. 15:05 Head/face: Noted is ecchymosis, that is mild, of the right supraorbital ridge, cp swelling, that is mild, of the right supraorbital ridge, tenderness, that is mild, of the right supraorbital ridge. 15:05 Eyes: Pupils: equal, round, and reactive to light and accomodation, Extraocular movements: intact throughout, Conjunctiva: normal, no exudate, no injection, Sclera: no appreciated abnormality, Lids and lashes: appear normal, bilaterally. 15:05 ENT: External ear(s): are unremarkable, Ear canal(s): are normal, clear, TM's: dullness, bilaterally, Nose: is normal, Mouth: Lips: moist, Oral mucosa: moist, Posterior pharynx: Airway: no evidence of obstruction, patent. 15:05 Neck: C-spine: vertebral tenderness, is not appreciated, crepitus, is not appreciated, ROM/movement: pain, is not appreciated, limited range of motion, is not appreciated, nuchal rigidity, is not appreciated. 15:05 Chest/axilla: Inspection: normal, Palpation: is normal, no crepitus, no tenderness. 15:05 Cardiovascular: Rate: normal, Rhythm: regular. 15:05 Respiratory: the patient does not display signs of respiratory distress, Respirations: normal, no use of accessory muscles, no retractions, labored breathing, is not present, Breath sounds: are clear throughout, no decreased breath sounds. 15:05 Abdomen/GI: Inspection: abdomen appears normal, Palpation: abdomen is soft and non-tender, in all quadrants. 15:05 Back: pain, is absent, ROM is normal. 15:05 Musculoskeletal/extremity: Extremities: grossly normal except: noted in the right elbow: abrasion, pain, swelling, tenderness, There is no evidence of decreased ROM, deformity, noted in the right wrist: pain, tenderness, no evidence of decreased ROM, deformity, swelling, ROM: full active range of motion, in the right elbow and right wrist, Pulses: noted to be 2+ in the right radial artery, Sensation intact. Vital Signs: 14:43 BP 177 / 69; Pulse 78; Resp 18; Temp 98.1; Pulse Ox 99% ; Pain 8/10; kl 16:02 BP 177 / 77; Pulse 78; Resp 20; Pain 8/10; kl 16:21 BP 168 / 78; Pulse 82; Resp 18; Pulse Ox 99% ; Pain 4/10; kl MDM: 14:44 Patient medically screened. 16:00 Data reviewed: vital signs, nurses notes, radiologic studies, CT scan, plain films, and cp as a result, I will discharge patient. Test interpretation: by ED physician or midlevel provider: plain radiologic studies. Counseling: I had a detailed discussion with the patient and/or guardian regarding: the historical points, exam findings, and any diagnostic results supporting the discharge/admit diagnosis, radiology results, to return to the emergency department if symptoms worsen or persist or if there are any questions or concerns that arise at home. 05 14:44 Order name: XRAY Elbow RIGHT 3 view; Complete Time: 15:43 05 15:43 Interpretation: Report reviewed. 05 14:44 Order name: XRAY Wrist RIGHT 3 view; Complete Time: 15:43 05 15:44 Interpretation: Report reviewed. 05 14:44 Order name: CT Head C Spine; Complete Time: 15:43 05 15:44 Interpretation: Reviewed report. 05 15:54 Order name: Sling; Complete Time: 16:21 06/24 15:54 Order name: Splint - Wrist: right wrist brace; Complete Time: 16:21 cp Administered Medications: 15:05 Drug: Tylenol 1000 mg Route: PO; kl 16:21 Follow up: BP 168 / 78; Pulse 82 bpm; Resp 18 bpm; Pulse Ox 99% ; Pain 4/10 Adult kl Disposition: 16:15 Chart complete. 06/25 09:38 Co-signature as Attending Physician, Ayden Nicholas MD I agree with the assessment and allen plan of care. Disposition: 06/24/20 16:03 Discharged to Home. Impression: Fall on same level from slipping, tripping and stumbling, Pain in right wrist - from fall, Contusion of right elbow - from fall, Contusion of unspecified part of head - from fall. - Condition is Stable. - Discharge Instructions: Head Injury, Adult, Wrist Pain, Elbow Contusion. - Prescriptions for Ibuprofen 800 mg Oral Tablet - take 1 tablet by ORAL route every 8 hours As needed take with food; 30 tablet. - Medication Reconciliation Form, Thank You Letter, Antibiotic Education, Prescription Opioid Use form. - Follow up: Private Physician; When: 2 - 3 days; Reason: Recheck today's complaints. - Problem is new. - Symptoms have improved. Signatures: Dispatcher [employer] EDJessica Fink RN RN kl Anderson, Corey, MD MD cha Calderon, Audri, RN RN aa5 Ayden Gonzalez PA PA cp Corrections: (The following items were deleted from the chart) 06/24 16:25 16:03 06/24/2020 16:03 Discharged to Home. Impression: Fall on same level from kl slipping, tripping and stumbling; Pain in right wrist - from fall; Contusion of right elbow - from fall; Contusion of unspecified part of head - from fall. Condition is Stable. Forms are Medication Reconciliation Form, Thank You Letter, Antibiotic Education, Prescription Opioid Use. Follow up: Private Physician; When: 2 - 3 days; Reason: Recheck today's complaints. Problem is new. Symptoms have improved. cp 16:26 16:25 06/24/2020 16:03 Discharged to Home. Impression: Fall on same level from kl slipping, tripping and stumbling; Pain in right wrist - from fall; Contusion of right elbow - from fall; Contusion of unspecified part of head - from fall. Condition is Stable. Discharge Instructions: Head Injury, Adult, Wrist Pain, Elbow Contusion. Prescriptions for Ibuprofen 800 mg Oral Tablet - take 1 tablet by ORAL route every 8 hours As needed take with food; 30 tablet. and Forms are Medication Reconciliation Form, Thank You Letter, Antibiotic Education, Prescription Opioid Use. Follow up: Private Physician; When: 2 - 3 days; Reason: Recheck today's complaints. Problem is new. Symptoms have improved. 17:04 16:26 06/24/2020 16:03 Discharged to Home. Impression: Fall on same level from slipping, tripping and stumbling; Pain in right wrist - from fall; Contusion of right elbow - from fall; Contusion of unspecified part of head - from fall. Condition is Stable. Discharge Instructions: Head Injury, Adult, Wrist Pain, Elbow Contusion. Prescriptions for Ibuprofen 800 mg Oral Tablet - take 1 tablet by ORAL route every 8 hours As needed take with food; 30 tablet. and Forms are Medication Reconciliation Form, Thank You Letter, Antibiotic Education, Prescription Opioid Use. Follow up: Private Physician; When: 2 - 3 days; Reason: Recheck today's complaints. Problem is new. Symptoms have improved. 17:09 17:04 06/24/2020 16:03 Discharged to Home. Impression: Fall on same level from aa5 slipping, tripping and stumbling; Pain in right wrist - from fall; Contusion of right elbow - from fall; Contusion of unspecified part of head - from fall. Condition is Stable. Discharge Instructions: Head Injury, Adult, Wrist Pain, Elbow Contusion. Prescriptions for Ibuprofen 800 mg Oral Tablet - take 1 tablet by ORAL route every 8 hours As needed take with food; 30 tablet. and Forms are Medication Reconciliation Form, Thank You Letter, Antibiotic Education, Prescription Opioid Use. Follow up: Private Physician; When: 2 - 3 days; Reason: Recheck today's complaints. Problem is new. Symptoms have improved. kl
[2020-06-24 17:20] VITALS: TEMP 98.1; O2SAT 99
[2020-06-24 17:23] VITALS: BP 168/78
== END 2020-06-24 17:09 | disposition home or self-care (01) ==
LOC: ER 14:25
DX: S50.01XA Contusion of right elbow, initial encounter (principal); S00.83XA Contusion of other part of head, initial encounter; W01.198A Fall on same level from slipping, tripping and stumbling with subsequent striking against other object, initial encounter; Y93.01 Activity, walking, marching and hiking; Y92.512 Supermarket, store or market as the place of occurrence of the external cause; I10 Essential (primary) hypertension; E11.9 Type 2 diabetes mellitus without complications
CPT/HCPCS: 70450; 72125; 99284

== ENCOUNTER 2021-04-28 15:26 | Emergency (ER) | payer BC, SELFPAY ==
--- OUTSIDE RECORDS SUMMARY | 2021-04-28 15:29 | XMS REPORT | Continuity of Care Document ---
:1960 Author Organization [facility] t Address [address] [place] [address] Care Team Providers Name Role Phone Rico Edmond Attending Clinician Unavailable Problems This patient has no known problems. Allergies, Adverse Reactions, Alerts This patient has no known allergies or adverse reactions. Medications Ordered Filled Start Stop Current Ordering Indication Dosage Frequency Signature Comments Components Source Medication Medication Date Date Medication? Clinician (SIG) Name Name GlipiZIDE GlipiZIDE Yes Ok [address] [facility] 30 minutes [facility] [place] Yes Ok use once [facility] daily with [facility]: Victoza [facility] 00 [facility] Metformin Metformin Yes Ok [address] [facility] HCl HCl [facility] with a [facility] - meal [facility] Lovastatin Lovastatin Yes Ok [address] [facility] with the [facility] - evening [facility] meal l [facility] Lisinopril- Lisinopril- Yes Ok take one [facility] Hydrochloro Hydrochloro [facility] -1 [facility] - thiazide thiazide tablet(s) Me moria by mouth l twice a Outpati day. ent Clinics Carvedilol Carvedilol Yes Ok [address] [facility] Lovastatin Lovastatin Yes Ok TAKE ONE [facility] (1) [facility] - TABLET(S) [facility] BY MOUTH l ONCE A DAY Outpati WITH THE ent EVENING Clinics MEAL. Immunizations Ordered Filled Immunization Date Status Comments [facility] Immunization Name Name TDAP > 7 TDAP > 7 2019-05-[address] [facility] - Years-Adacel Years-Adacel 00:00:00 [facility] Afluria Afluria 2018-11-[address] [facility] - 00:[facility]00 [facility] Procedures This patient has no known procedures. Encounters Start End Encounter Admission Attending Care Care Encounter Source Date/Time Date/Time Type Type Clinicians Facility Department ID 2021-03-17 Outpatient Edmond, [facility] [id number] [facility] [facility] [id number] [facility] 2021-03-17 Outpatient Edmond, [facility] [id number] 13[facility] [id number] [facility] 2021-03-17 Outpatient Emdond, [facility] [id number] 13:28:[place] [id number] [facility] 2021-03-17 Outpatient Edmond, [facility] [id number] [place] [id number] [facility] 2021-03-17 Outpatient Edmond, [facility] [id number] 12:59:[place] [id number] [facility] 2021-03-17 Outpatient Edmond, [facility] [id number] 12:40:[place] [id number] [facility] 2021-03-17 Outpatient Edmond, [facility] [id number] 12:17:[place] [id number] [facility] 2021-03-17 Outpatient Edmond, [facility] [id number] 12:15:[place] [id number] [facility] 2021-03-17 Outpatient Edmond, [facility] [id number] [place]:15:[place] [id number] [facility] 2021-03-17 Outpatient Edmond, [facility] [id number] [place] [id number] [facility] 2021-03-17 Outpatient [facility], [facility] [id number] [facility] [place] [id number] [facility] 2021-03-17 Outpatient Ed[facility], [facility] [id number] [place] [id number] [facility] 2021-03-17 Outpatient Ed[facility], [facility] [id number] [facility] [place]:14:[place] [id number] [facility] 2021-03-17 Outpatient Edmond, [facility] [id number] [place] [id number] [facility] 2021-03-17 Out[facility], [facility] [id number] [place]:03:[place] [id number] [facility] 2021-01-12 2021-01-12 ambulatory [facility] [id number] [facility] 2021-01-08 2021-01-08 ambulatory [facility] [id number] [facility] 2020-10-19 2020-10-19 Outpatient [facility] [id number] [facility] 2020-10-06 2020-10-06 Outpatient [facility] [id number] [facility] 2020-09-30 2020-09-30 Outpatient [facility] [id number] [facility] 2020-07-01 2020-07-01 Outpatient [facility] [id number] [facility] 2020-06-25 2020-06-25 Outpatient [facility] [id number] [facility] 2020-05-05 2020-05-05 Outpatient [facility] [id number] [facility] 2020-02-06 2020-02-06 Outpatient [facility] [id number] [facility] 2019-11-12 2019-11-12 [facility] [id number] [facility] 2019-11-07 2019-11-07 [facility] [id number] [facility] 08:50:00 08:50:00 [place] [employer] [facility] - [facility] l Medicine Outpati ent Clinics 2019-08-08 2019-08-08 [facility] [id number] 15:01:00 15:01:00 [place] [employer] - [place] [facility] Medicine l Medicine Outpati ent Clinics 2019-08-08 2019-08-08 [facility] [id number] [facility] 14:52:00 14:52:00 [place] [employer] - [place] [facility] Medicine l Medicine Outpati ent Clinics 2019-08-08 2019-08-08 [facility] [id number] [facility] 14:15:00 14:15:00 [place] [employer] [facility] - [facility] Medicine l Medicine Outpati ent Clinics 2019-07-01 2019-07-01 [facility] [id number] [facility] 14:23:00 14:23:00 [place] [employer] - [place] [facility] Medicine l Medicine Outpati ent Clinics 2019-05-09 2019-05-09 [facility] [id number] 14:30:00 14:30:00 [place] [employer] [facility] - [facility] Medicine l Medicine Outpati ent Clinics 2019 2019 [facility] [id number] [facility] 10:11:00 10:11:00 [place] [facility] - Drive [facility] l Medicine Outpati ent Clinics 2019-02-27 2019-02-27 [facility] [id number] 14:27:00 14:27:00 [place] [employer] s - [facility] Medicine l Medicine Outpati ent Clinics 2019-02-08 2019-02-08 [facility] [id number] 10:45:00 10:45:00 [place] [employer] [facility] - [facility] Medicine l Medicine Outpati ent Clinics 2019-01-30 2019-01-30 [facility] [id number] [facility] 16:53:00 16:53:00 [place] [employer] - [facility] Medicine l Medicine Outpati ent Clinics 2018-11-02 2018-11-02 [facility] [id number] [facility] 09:37:00 09:37:00 [place] [employer] [place] - [facility] Medicine l Medicine Outpati ent Clinics 2018-11-01 2018-11-01 [facility] [id number] [facility] 14:00:00 14:00:00 [place] [employer] [place] - [facility] Medicine l Medicine Outpati ent Clinics 2018-10-30 2018-10-30 [facility] [id number] [facility] 13:58:00 13:58:00 [place] [employer] s - Drive [facility] Medicine l Medicine Outpati ent Clinics 2018-08-02 2018-08-02 [facility] [id number] [facility] 10:15:00 10:15:00 [place] [employer] - [facility] Medicine l Medicine Outpati ent Clinics 2018-05-10 2018-05-10 [facility] [id number] 10:00:00 10:00:00 [place] [employer] - Drive [facility] Medicine l Medicine Outpati ent Clinics 2018-04-18 2018-04-18 [facility] [id number] 14:00:00 14:00:00 [place] [employer] - Drive [facility] Medicine l Medicine Outpati ent Clinics 2018-04-17 2018-04-17 [facility] [id number] [facility] 14:52:00 14:52:00 [place] [employer] - [place] [facility] Medicine Outpati ent Clinics 2018-04-16 2018-04-16 [facility] [id number] 14:04:00 14:04:00 t [email or web address] s - [place] [facility] Medicine Outpati ent Clinics 2018-04-12 2018-04-12 [facility] [id number] [facility] 08:49:00 08:49:00 [facility] [employer] [facility] Medicine Outpati ent Clinics 2017-10-09 2017-10-09 [facility] [id number] 14:30:00 14:30:00 [facility] Medicine Outpati ent Clinics 2017-09-20 2017-09-20 [facility] [id number] [facility] 13:45:00 13:45:00 [facility] Medicine Outpati ent Clinics Results This patient has no known results.
[2021-04-28 16:10] LABS: Urine Blood Negative (Negative); Urine Glucose Negative (Negative); Urine Protein Negative (Negative); Urine pH 6.5 (5.0-7.0)
[2021-04-28] MEDS ORDERED: LORazepam 2 MG/ML VIAL ONE (16:10)
[2021-04-28 16:24] LABS: Urine Bacteria >50 /HPF (<20); Urine RBC <5 /HPF (NONE SEEN)
[2021-04-28 16:49] LABS: Hematocrit 41.1 % (36.0-45.0); Lymphocytes % 35.2 % (15.3-44.8); MPV 9.2 fL (7.6-11.3); Protime INR 1.12; RBC Red Blood Cell Count 4.57 M/uL (3.86-4.86)
[2021-04-28 17:09] LABS: ALT/SGPT 55 U/L (12-78); AST/SGOT 36 U/L (15-37); Albumin 3.8 g/dL (3.4-5.0); Alkaline Phosphatase 132 U/L (45-117); BUN Blood Urea Nitrogen 11 mg/dL (7-18); Bicarbonate 23 mmol/L (21-32); Bilirubin Direct 0.3 mg/dL (0-0.2); Glucose Level 125 mg/dL (74-106); Potassium 3.4 mmol/L (3.5-5.1); Sodium Level 140 mmol/L (136-145)
[2021-04-28 18:11] LABS: Troponin High Sensitivity < 3.00 pg/mL (<58.9)
--- NOTE | 2021-04-28 18:40 | EDPHYS ---
Physician Documentation [facility] Name: Liset Langford Age: 61 yrs Sex: Female : 1960 Arrival Date: 04/28/2021 Time: 15:30 Bed 6 Private MD: ED Physician Ayden Nicholas HPI: 04/28 15:51 This 61 yrs old Female presents to ER via Ambulatory with complaints of cp Crying, Fatigue. 15:51 The patient presents to the emergency department with anxiety. cp 15:51 Onset: The symptoms/episode began/occurred today. Daughter translating. Reports patient cp was driving today and started crying uncontrollably. Patient was unable to tell daughter her location. Daughter reports patient has been under increased stress dealing with health of . Historical: - Allergies: 15:36 No Known Allergies; ld1 - Home Meds: 15:36 metformin 1,000 mg Oral tab 1 tab 2 times per day [Active]; Lisinopril Oral [Active]; ld1 lovastatin 10 mg Oral tab 1 tab once daily [Active]; carvedilol oral [Active]; amlodipine 10 mg tab 1 tab once daily [Active]; - PMHx: 15:36 Diabetes - NIDDM; Hypertension; ld1 - PSHx: 15:36 Cholecystectomy; Hysterectomy; ld1 - Immunization history:: Adult Immunizations up to date, Client reports receiving the 2nd dose of the Covid vaccine. - Social history:: Smoking status: Patient denies any tobacco usage or history of. Patient/guardian denies using alcohol. ROS: 15:55 Constitutional: Negative for body aches, chills, fever, poor PO intake. cp 15:55 Eyes: Negative for injury, pain, redness, and discharge. cp 15:55 Cardiovascular: Negative for chest pain. 15:55 Respiratory: Negative for cough, shortness of breath, wheezing. 15:55 Abdomen/GI: Negative for abdominal pain, nausea, vomiting, and diarrhea. 15:55 Neuro: Negative for altered mental status, dizziness, headache, numbness, weakness. 15:55 Psych: Negative for auditory hallucinations, visual hallucinations, suicide gesture, suicidal ideation. 15:55 All other systems are negative. Exam: 16:00 Constitutional: The patient appears in no acute distress, alert, awake, cp non-diaphoretic, non-toxic, well developed, well nourished, tearful, crying uncontrollably 16:00 Head/Face: Normocephalic, atraumatic. cp 16:00 Eyes: Periorbital structures: appear normal, Pupils: equal, round, and reactive to light and accomodation, Extraocular movements: intact throughout, Conjunctiva: normal, no exudate, no injection, Sclera: no appreciated abnormality, Lids and lashes: appear normal, bilaterally. 16:00 ENT: External ear(s): are unremarkable, Nose: is normal, Mouth: Lips: moist, Oral mucosa: moist, Posterior pharynx: Airway: no evidence of obstruction, patent. 16:00 Chest/axilla: Inspection: normal. 16:00 Cardiovascular: Rate: normal, Rhythm: regular, Edema: is not appreciated, JVD: is not appreciated. 16:00 Respiratory: the patient does not display signs of respiratory distress, Respirations: normal, no use of accessory muscles, no retractions, labored breathing, is not present, Breath sounds: are clear throughout, no decreased breath sounds, no stridor, no wheezing. 16:00 Abdomen/GI: Inspection: abdomen appears normal, Palpation: abdomen is soft and non-tender, in all quadrants. 16:00 Neuro: Orientation: to person, place \T\ time. Mentation: is normal, Cerebellar function: is grossly normal, Motor: moves all fours, strength is normal, Sensation: is normal. 16:03 ECG was reviewed by the Attending Physician. Vital Signs: 15:34 BP 135 / 72; Pulse 74; Resp 20; Temp 98.5(O); Pulse Ox 100% on R/A; Weight 77.56 kg; ld1 Height 4 ft. 11 in. (149.86 cm); Pain 0/10; 17:15 BP 132 / 74; Pulse 66; Resp 17; Pulse Ox 98% on R/A; vg1 15:34 Body Mass Index 34.54 (77.56 kg, 149.86 cm) ld1 MDM: 15:49 Patient medically screened. cp 18:39 Data reviewed: vital signs, nurses notes, lab test result(s), EKG. cp 18:39 Differential diagnosis: acute psychotic break, depression. Test interpretation: by ED cp physician or midlevel provider: ECG. Counseling: I had a detailed discussion with the patient and/or guardian regarding: the historical points, exam findings, and any diagnostic results supporting the discharge/admit diagnosis, lab results, the need for outpatient follow up, a family practitioner, to return to the emergency department if symptoms worsen or persist or if there are any questions or concerns that arise at home. Response to treatment: the patient's symptoms have markedly improved after treatment, and as a result, I will discharge patient. 04/28 15:50 Order name: Basic Metabolic Panel; Complete Time: 18:33 cp 04/28 18:33 Interpretation: Normal except: K 3.4; CL 111; GLUC 125; CRE 0.43. cp 04/28 15:50 Order name: CBC with Diff; Complete Time: 16:54 cp 04/28 16:55 Interpretation: Normal except: PLT 95. cp 04/28 15:50 Order name: LFT's; Complete Time: 18:33 cp 04/28 18:34 Interpretation: Normal except: ALK 132; BILID 0.3; GLOB 4.2; A/G 0.9. cp 04/28 15:50 Order name: Magnesium; Complete Time: 18:33 cp 04/28 15:50 Order name: PT-INR; Complete Time: 16:54 cp 04/28 15:50 Order name: Troponin HS; Complete Time: 18:33 cp 04/28 15:50 Order name: EKG; Complete Time: 15:50 cp 04/28 15:50 Order name: Cardiac monitoring; Complete Time: 16:04 cp 04/28 15:50 Order name: EKG - Nurse/Tech; Complete Time: 16:04 cp 04/28 15:50 Order name: Urine Microscopic Only; Complete Time: 16:32 cp 04/28 16:32 Interpretation: Normal except: UBACT >50; SQEPI 5-10. cp 04/28 16:10 Order name: Urine Dipstick-Ancillary; Complete Time: 16:32 EDIA 04/28 16:55 Interpretation: Reviewed. cp 04/28 16:25 Order name: Urine Culture EDIA 04/28 15:50 Order name: IV Saline Lock; Complete Time: 16:39 cp 04/28 15:50 Order name: Labs collected and sent; Complete Time: 16:39 cp 04/28 15:50 Order name: O2 Per Protocol; Complete Time: 16:04 cp 04/28 15:50 Order name: O2 Sat Monitoring; Complete Time: 16:04 cp 04/28 15:50 Order name: Urine Dipstick-Ancillary (obtain specimen); Complete Time: 16:39 cp EC:03 Rate is 67 beats/min. Rhythm is regular. SC interval is normal. QRS interval is normal. cp QT interval is normal. T waves are Inverted in lead aVR. Interpreted by me. Reviewed by me. Administered Medications: 16:35 Drug: Ativan (LORazepam) 0.5 mg Route: IVP; Site: left antecubital; vg1 17:30 Follow up: Response: No adverse reaction; Marked relief of symptoms vg1 18:45 Drug: Potassium Effervescent Tablet 50 mEq Route: PO; vg1 Disposition Summary: 04/28/21 18:39 Discharge Ordered Location: Home cp Problem: new cp Symptoms: have improved cp Condition: Stable cp Diagnosis - Anxiety disorder, unspecified cp Followup: cp - With: Private Physician - When: 1 - 2 days - Reason: Recheck today's complaints Discharge Instructions: - Discharge Summary Sheet cp - Panic Attack cp - Generalized Anxiety Disorder, Adult cp Forms: - Medication Reconciliation Form cp - Thank You Letter cp - Antibiotic Education cp - Prescription Opioid Use cp Prescriptions: - Ativan 1 mg Oral Tablet - take 1 tablet by ORAL route every 12 hours As needed; 10 tablet; Refills: 0, cp Product Selection Permitted Addendum: 05/02/2021 18:24 Co-signature as Attending Physician, Ayden Nicholas MD I agree with the assessment and c ramirez plan of care. Signatures: Dispatcher [employer] Ayden Diez MD MD cha Page, Corey, PA PA cp Garcia, Victoria, RN RN vg1 Nathaly Sagastume RN RN ld1
--- NOTE | 2021-04-28 18:40 | ER ---
Nurse's Notes [facility] Name: Liset Langford Age: 61 yrs Sex: Female : 1960 Arrival Date: 04/28/2021 Time: 15:30 Bed 6 Private MD: Diagnosis: Anxiety disorder, unspecified Presentation: 04/28 15:34 Chief complaint: Patient states: Pt daughter states "my mom called me crying really bad ld1 and she couldn't tell me where she was at and she was uncontrollably crying." Denies pain but can't stop crying. Denies feeling confused upon arrival to ER but she just feels really sad. Pt states that "over the past few days she has wanted to cry and it feels like it is just building up.". Coronavirus screen: At this time, the client does not indicate any symptoms associated with coronavirus-19. Ebola Screen: No symptoms or risks identified at this time. Initial Sepsis Screen: Does the patient meet any 2 criteria? No. Patient's initial sepsis screen is negative. Does the patient have a suspected source of infection? No. Patient's initial sepsis screen is negative. Risk Assessment: Do you want to hurt yourself or someone else? Patient reports no desire to harm self or others. Onset of symptoms was April 28, 2021. 15:34 Method Of Arrival: Ambulatory ld1 15:34 Acuity: MUSA 3 ld1 Triage Assessment: 15:36 General: Appears in no apparent distress. uncomfortable, Behavior is cooperative, ld1 anxious, crying. Pain: Denies pain. Neuro: Level of Consciousness is awake, alert, obeys commands, Oriented to person, place, time, situation, Appropriate for age. Respiratory: Airway is patent Respiratory effort is even, unlabored. GI: Abdomen is round non-distended. Historical: - Allergies: 15:36 No Known Allergies; ld1 - Home Meds: 15:36 metformin 1,000 mg Oral tab 1 tab 2 times per day [Active]; Lisinopril Oral [Active]; ld1 lovastatin 10 mg Oral tab 1 tab once daily [Active]; carvedilol oral [Active]; amlodipine 10 mg tab 1 tab once daily [Active]; - PMHx: 15:36 Diabetes - NIDDM; Hypertension; ld1 - PSHx: 15:36 Cholecystectomy; Hysterectomy; ld1 - Immunization history:: Adult Immunizations up to date, Client reports receiving the 2nd dose of the Covid vaccine. - Social history:: Smoking status: Patient denies any tobacco usage or history of. Patient/guardian denies using alcohol. Screenin:04 Abuse screen: Denies threats or abuse. Nutritional screening: No deficits noted. vg1 Tuberculosis screening: No symptoms or risk factors identified. Fall Risk No fall in past 12 months (0 pts). No secondary diagnosis (0 pts). IV access (20 points). Ambulatory Aid- None/Bed Rest/Nurse Assist (0 pts). Gait- Normal/Bed Rest/Wheelchair (0 pts) Mental Status- Oriented to own ability (0 pts). Total Miranda Fall Scale indicates No Risk (0-24 pts). Assessment: 16:03 General: Appears in no apparent distress. uncomfortable, Behavior is cooperative, vg1 anxious, crying. Pain: Denies pain. Neuro: Level of Consciousness is awake, alert, obeys commands, Oriented to person, place, time, situation. Cardiovascular: Patient's skin is warm and dry. Respiratory: Airway is patent Respiratory effort is even, unlabored. GI: Reports nausea. : No signs and/or symptoms were reported regarding the genitourinary system. EENT: No signs and/or symptoms were reported regarding the EENT system. Derm: Skin is intact, is healthy with good turgor. Musculoskeletal: Circulation, motion, and sensation intact. 17:00 Reassessment: Patient appears in no apparent distress at this time. Patient and/or vg1 family updated on plan of care and expected duration. Pain level reassessed. Patient is alert, oriented x 3, equal unlabored respirations, skin warm/dry/pink. pt states 'i feel a little dizzy'. Provider notified. Vital Signs: 15:34 BP 135 / 72; Pulse 74; Resp 20; Temp 98.5(O); Pulse Ox 100% on R/A; Weight 77.56 kg; ld1 Height 4 ft. 11 in. (149.86 cm); Pain 0/10; 17:15 BP 132 / 74; Pulse 66; Resp 17; Pulse Ox 98% on R/A; vg1 15:34 Body Mass Index 34.54 (77.56 kg, 149.86 cm) ld1 ED Course: 15:30 Patient arrived in ED. kz 15:36 Triage completed. ld1 15:36 Arm band placed on left wrist. ld1 15:39 Chelsea Merida RN is Primary Nurse. vg1 15:45 Ayden Gonzalez PA is PHCP. cp 15:45 Ayden Nicholas MD is Attending Physician. cp 16:04 Patient has correct armband on for positive identification. Bed in low position. Call vg1 light in reach. Side rails up X 1. Adult w/ patient. 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 Pulse ox on. NIBP on. 16:25 Missed attempt(s): 22 gauge in left. vg1 16:30 Inserted saline lock: 20 gauge in left wrist, using aseptic technique. ,using aseptic vg1 technique. completed by Jaylyn LYN Blood collected. 16:30 Initial lab(s) drawn, by ED staff, sent to lab. vg1 16:44 Inserted saline lock:. vg1 19:37 No provider procedures requiring assistance completed. IV discontinued, intact, ll3 bleeding controlled, No redness/swelling at site. Pressure dressing applied. Administered Medications: 16:35 Drug: Ativan (LORazepam) 0.5 mg Route: IVP; Site: left antecubital; vg1 17:30 Follow up: Response: No adverse reaction; Marked relief of symptoms vg1 18:45 Drug: Potassium Effervescent Tablet 50 mEq Route: PO; vg1 Outcome: 18:39 Discharge ordered by . cp 19:37 Discharged to home ambulatory. ll3 19:37 Condition: stable 19:37 Discharge instructions given to patient, family, Instructed on discharge instructions, follow up and referral plans. medication usage, Demonstrated understanding of instructions, follow-up care, medications, Prescriptions given X 1. 19:38 Patient left the ED. ll3 Signatures: Ayden Gonzalez PA PA cp Garcia, Victoria, RN RN vg1 Nathaly Sagastume RN RN ld1 Jose Martin Antonio RN RN ll3 Yasmin Henriquez kana Corrections: (The following items were deleted from the chart) 16:44 16:30 Inserted saline lock: 22 gauge in left antecubital area, using aseptic technique. vg1 ,using aseptic technique. completed by Jaylyn LYN Blood collected. vg1 16:45 16:30 Inserted saline lock: 20 gauge in left antecubital area, using aseptic technique. vg1 ,using aseptic technique. completed by Jaylyn LYN Blood collected. vg1
[2021-04-28] MEDS ORDERED: POTASSIUM 25 MEQ EFFERV TAB ONE (18:42)
[2021-04-28 20:12] VITALS: TEMP 98.5
[2021-04-28 20:15] VITALS: BP 132/74; O2SAT 98
== END 2021-04-28 19:38 | disposition home or self-care (01) ==
LOC: ER 15:26
DX: F41.9 Anxiety disorder, unspecified (principal); E11.9 Type 2 diabetes mellitus without complications; I10 Essential (primary) hypertension
CPT/HCPCS: 36415; 80048; 80076; 81003; 81015; 83735; 84484; 85025; 85610; 87086; 87088; 93005; 96374; 99284

== ENCOUNTER 2024-03-21 15:56 | Emergency (ER) | payer OTHER ==
--- OUTSIDE RECORDS SUMMARY | 2024-03-21 16:01 | XMS REPORT | Continuity of Care Document ---
Author Name Unknown Address [address] [facility] [address] [place] [address] [facility] thconnect Address [address] [facility] [place] [address] Care Team Providers Care Social Services Specialist Name Role Phone PCP, PATIENT DOES NOT HAVE A Primary Care Physic trae Unavailable Ok Edmond Attending Clinician Unavailable ROLYDARRYN THOMSON Attending Clinician Unavailable FERN LASSITER Attending Clinician Unavailable LAB90 Attending Clinician Unavailable ALFONZO ESPARZA Attending Clinician Unavailabl e LAB47 Attending Clinician Unavailable VY HARRIS Attending Clinician Unavailable ALVINO PEREA Attending Clinician Unavail able MARIKA HIDALGO Attending Clinician Unavailable TRED47 Attending Clinician Unavailable DARLYN AVILA Attending Clinician Unav ailflaco DIXON Attending Clinician Unavailable NICHO PULLIAM Attending Clinician Unavailable LAB45 Attending Clinician Unavailable ESPERANZA ROBERTS Attending Clinician Unavailable ONLY, HEM/ONC NURSE Attending Clinician Unava ilNancy Lang RN Attending Clinician AXEL YODER Attending Clinician Unavailable Hank Robbins MD Attending Clinician [phone] Elisa Tabares DO Attending Clinician [phone] ELISA TABARES Admitting Clinician Unavailable Elisa Tabares DO Admitting Clinician [phone] Payers Payer Name Policy Type Policy Number Effective Date Expirati on Date Source WELLC[employer] TXP CLASSIC NO PREMIUM R2T 7 [id number] 2023 00:00:00 MEDICARE-PART B 5 [id number] 2023 00:00:00 [employer] [facility] 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 [id number] 2022 00:00[facility]00 [facility] [id number] 2021 00:00:00 2022 00:00:00 [facility] Ambetter from [facility] [id number] [facility] Ambetter from [facility] [id number] [facility] Ambetter from [facility] [id number] [facility] Ambetter from [facility] [id number] [facility] Blue Cross and Blue Shield C1 [id number] [facility] Problems Condition Name Condition Details Condition Category Status Onset Date Resolution Date Last Treatment Date Treating Clinician Comments Source Dizziness Dizziness Disease Active 05-09 00:00: 00 Nuha Gutiérrez - Externa l Hypokalemi a Hypokalemi a Disease Active 05-09 00:00: 00 Nuha Ontiverosold - Externa l Coagulatio n disorder (multi HCC) Coagulatio n disorder (multi HCC) Disease Active 11-06 00:00: 00 Nuha Ontiverosold - Externa l Immunodefi ciency due to cirrhosis (multi HCC) Immunodefi ciency due to cirrhosis (multi HCC) Disease Active 11-06 00:00: 00 Nuha Ontiverosold - Externa l Liver cirrhosis secondary to BLUE (multi HCC) Liver cirrhosis secondary to BLUE (multi HCC) Disease Active 11-01 00:00: 00 Nuha Gutiérrez - Externa brannon Shortness of breath Shortness of breath Disease Active 11-01 00:00: 00 Nuha Gutiérrez - Externa brannon Morbid obesity Morbid obesity Disease Active 08-18 00:00: 00 Nuha Boudreaux Externa brannon Well adult exam Well adult exam Disease Active 08-18 00:00: 00 Nuha Boudreaux Externa brannon Thrombocyt openia Thrombocyt openia Disease Active 08-18 00:00: 00 Nuha Sparrowa brannon Elevated liver function tests Elevated liver function tests Disease Active 08-18 00:00: 00 Nuha Sparrowa brannon Umbilical hernia without obstructio n and without gangrene Umbilical hernia without obstructio n and without gangrene Disease Active 08-18 00:00: 00 Nuha Sparrowa brannon Class 3 severe obesity due to excess calories with serious comorbidit y and body mass index (BMI) of 45.0 to 49.9 in adult Class 3 severe obesity due to excess calories with serious comorbidit y and body mass index (BMI) of 45.0 to 49.9 in adult Disease Active 08-18 00:00: 00 Nuha Sparrowa brannon Asymptomat ic varicose veins of both lower extremitie s Asymptomat ic varicose veins of both lower extremitie s Disease Active 07-20 00:00: 00 Nuha Sparrowa brannon Diabetic polyneurop athy associated with type 2 diabetes mellitus (multi HCC) Diabetic polyneurop athy associated with type 2 diabetes mellitus (multi HCC) Disease Active 07-20 00:00: 00 Nuha Boudreaux Externa brannon HTN (hypertens ion) HTN (hypertens ion) Disease Active 07-20 00:00: 00 Nuha Gutiérrez - Externa brannon DM type 2 with diabetic mixed hyperlipid emia (multi HCC) DM type 2 with diabetic mixed hyperlipid emia (multi HCC) Disease Active 07-20 00:00: 00 Nuha Boudreaux Externa brannon Fatty liver Fatty liver Disease Active 07-20 00:00: 00 Nuha Gutiérrez - Externa l Morbid obesity with body mass index of 40.0-49.9 Morbid obesity with body mass index of 40.0-49.9 Disease Active 06-22 00:00: 00 [facility] SBO (small bowel obstructio n) SBO (small bowel obstructio n) Disease Active 06-22 00:00: 00 [facility] Acquired thrombocyt openia Acquired thrombocyt openia Problem [facility] [id number] GERD without esophagiti s Problem [facility] [id number] Body mass index (BMI) of 35.0-35.9 in adult Problem [facility] Obesity Morbid (severe) obesity due to excess calories Problem [facility] [id number] Uncontroll ed diabetes mellitus type 2 without complicati ons, unspecifie d whether intermediate insulin use Problem [facility] [id number] Mixed hyperlipid emia Problem [facility] [id number] Thrombocyt openia Problem [facility] [id number] Noncomplia nce with dietary restrictio n Problem [facility] Allergies, Adverse Reactions, Alerts Allergy Name Allergy Type Status Severity Reaction(s) Onset Date Inactive Date Treating Clinician Comments Source Tylenol Propensi ty to adverse reaction s Active 08-03 00:00: 00 Nuha Gutiérrez - Externa l Codeine Propensi ty to adverse reaction s Active 04-01 00:00: 00 Nuha Sparrowa l NO KNOWN ALLERGIE S Drug Class Active [facility] Social History Social Habit Start Date Stop Date Quantity Comments Source History of tobacco use Passive smoker [facility] History SDOH Alcohol Std Drinks [facility] History SDOH Alcohol Binge [facility] History SDOH Social Connections Get Together [facility] History SDOH Social Connections Shinto [facility] ASSERTION Not Nuha Gutiérrez - External History of Occupation Nuha Gutiérrez - External Gender identity Rica Gutiérrez - External Sexual orientation Sotero Ontiverosold - External History SDOH Social Connections Membership [facility] History SDAR Social Connections Meetings [facility] Alcoholic beverage intake 2024-03-05 00:00:00 2024-03-05 00:00:00 Lifetime non-drinker (finding) Nuha Marla - External Alcohol intake 2023-05-10 00:00:00 2023-05-10 00:00:00 Lifetime non-drinker (finding) Nuha Gutiérrez - External History of Social function 2022-11-07 00:00:00 2022-11-07 00:00:00 Nuha Gutiérrez - External Tobacco use and exposure 2022-08-18 00:00:00 2022-08-18 00:00:00 Smokeless tobacco non-user Nuha Gutiérrez - External Education 2022-08-18 00:00:00 2022-08-18 00:00:00 2 Nuha Gutiérrez - External History SDOH Alcohol Frequency 2022-06-23 00:00:00 2022-06-23 00:00:00 1 [facility] History SDOH Social Connections Phone 2022-06-23 00:00:00 2022-06-23 00:00:00 5 [facility] History SDOH Social Connections Living 2022-06-23 00:00:00 2022-06-23 00:00:00 6 [facility] History SDOH Physical Activity DPW 2022-06-23 00:00:00 2022-06-23 00:00:00 4 [facility] History SDOH Physical Activity MPS 2022-06-23 00:00:00 2022-06-23 00:00:00 2 [facility] History SDOH Financial 2022-06-23 00:00:00 2022-06-23 00:00:00 5 [facility] History SDOH Food Worry 2022-06-23 00:00:00 2022-06-23 00:00:00 1 [facility] History SDOH Food Scarcity 2022-06-23 00:00:00 2022-06-23 00:00:00 1 [facility] History SDOH Transport Med 2022-06-23 00:00:2022-06-23 00:00:00 2 [facility] History SDOH Transport Non-Med 2022-06-23 00:00:00 2022-06-23 00:00:00 2 [facility] History SDOH Housing Unable to Pay 2022-06-23 00:00:00 2022-06-23 00:00:00 2 [facility] History SDOH Housing Places Lived 2022-06-23 00:00:00 2022-06-23 00:00:00 1 [facility] History SDOH Housing Homeless Last Year 2022-06-23 00:00:00 2022-06-23 00:00:00 2 [facility] Sex 2022-02-17 16:01:17 2022-02-17 16:01:17 Female (finding) Nuha Robbins Sex assigned at 1960 00:00:00 1960 00:00:00 F Nuha Robbins Smoking Status Start Date Stop Date Source Tobacco smoking consumption unknown Nuha Robbins Never smoked tobacco Nuha Robbins Medications Ordered Medication Name Filled Medication Name Start Date Stop Date Current Medication? Ordering Clinician Indication Dosage Frequency Signature (SIG) Comments Components Source Tirzepatide 2.5 MG/0.5ML subcutaneou s Solution Auto-inject or 03-05 00:00: 00 Yes [id number] 3 2.5mg Q1W Inject 2.5 mg into the skin once a week. [facility] Metformin HCl 1000 MG oral Tablet 03-05 00:00: 00 Yes [id number] 3 1000mg Take 1 tablet (1,000 mg total) by mouth in the morning and 1 tablet (1,000 mg total) in the evening. Take with meals. [facility] Benzonatate (Tessalon Perles) 100 MG oral Capsule 03-05 00:00: 00 Yes [id number] 100mg Q.[id number] 3D Take 1 capsule (100 mg total) by mouth 3 times daily as needed for cough. [facility] glipiZIDE 5 MG oral Tablet 2025-0 1-13 00:00: 00 Yes [id number] 3 TAKE 1 TABLET (5 MG TOTAL) BY MOUTH IN THE MORNING AND IN THE EVENING BEFORE MEALS [facility] Losartan Potassium (COZAAR) 50 MG oral Tablet 2023-02 2- 00:00: 00 Yes [id number] 50mg Q.5D TAKE 1 TABLET BY MOUTH 2 TIMES DAILY [facility] Gabapentin 100 MG oral Capsule 2023-02 0-14 00:00: 00 Yes [id number] 100mg Q.5D Take 1 capsule (100 mg total) by mouth 2 times daily as needed (pain). [facility] Lovastatin 10 MG oral Tablet 9-20 00:00: 00 Yes [id number] 3 10mg QD Take 1 tablet (10 mg total) by mouth nightly. [facility] Lovastatin 10 MG oral Tablet 9-20 00:00: 00 Yes [id number] 3 10mg QD Take 1 tablet (10 mg total) by mouth nightly. [facility] Metformin HCl 1000 MG oral Tablet - 00:00: 00 03-05 00:00 :00 No [id number] 3 1000mg QD Take 1 tablet (1,000 mg total) by mouth daily (with breakfast) . [facility] Gabapentin 100 MG oral Capsule -19 00:00: 00 12-03 00:00 :00 No [id number] 100mg Q.5D Take 1 capsule (100 mg total) by mouth 2 times daily as needed (pain). [facility] glipiZIDE 5 MG oral Tablet 7-19 00:00: 00 Yes [id number] 3 5mg Take 1 tablet (5 mg total) by mouth in the morning and 1 tablet (5 mg total) in the evening. Take before meals. [facility] Losartan Potassium (COZAAR) 50 MG oral Tablet 5-14 00:00: 00 Yes [id number] 50mg Q.5D Take 1 tablet (50 mg total) by mouth 2 times daily. [facility] Losartan Potassium (COZAAR) 50 MG oral Tablet 06-27 00:00: 00 Yes [id number] 50mg Take 1 tablet (50 mg total) by mouth daily. [facility] Dulaglutide (Trulicity) 1.5 MG/0.5ML subcutaneou s Solution Pen-injecto r 06-27 00:00: 00 Yes [id number] 3 1.5mg Q1W Inject 1.5 mg into the skin once a week. [facility] south Carvedilol 6.25 MG oral Tablet 06-27 00:00: 00 Yes [id number] 6.25mg Take 1 tablet (6.25 mg total) by mouth in the morning and 1 tablet (6.25 mg total) in the evening. Take with meals. [facility] south Dulaglutide (Trulicity) 1.5 MG/0.5ML subcutaneou s Solution Pen-injecto r 06-27 00:00: 00 03-05 00:00 :00 No [id number] 3 1.5mg Q1W Inject 1.5 mg into the skin once a week. [facility]ha south Metformin HCl 1000 MG oral Tablet 06-27 00:00: 00 10-08 00:00 :00 No [id number] 3 1000mg Take 1 tablet (1,000 mg total) by mouth in the morning and 1 tablet (1,000 mg total) in the evening. Take with meals. [facility] glipiZIDE 5 MG oral Tablet 05-09 00:00: 00 Yes [id number] 3 5mg Take 1 tablet (5 mg total) by mouth daily (before a meal). [facility] Meclizine HCl 12.5 MG oral Tablet 05-09 00:00: 00 10-08 00:00 :00 No [id number] 12.5mg QD Take 1 tablet (12.5 mg total) by mouth daily as needed for dizziness or nausea. [facility]ha south Losartan Potassium (COZAAR) 50 MG oral Tablet 05-09 00:00: 00 06-27 00:00 :00 No [id number] 50mg Take 1 tablet (50 mg total) by mouth daily. [facility] south Metformin HCl 1000 MG oral Tablet 04-10 00:00: 00 06-27 00:00 :00 No [id number] 3 1000mg Take 1 tablet (1,000 mg total) by mouth in the morning and 1 tablet (1,000 mg total) in the evening. Take with meals. [facility] south Losartan Potassium-H CTZ 50-12.5 MG oral Tablet 03-23 00:00: 00 05-09 00:00 :00 No [id number] 1{tbl} Take 1 tablet by mouth daily. [facility] south Trulicity 1.5 MG/0.5ML subcutaneou s Solution Pen-injecto r 03-20 00:00: 00 06-27 00:00 :00 No 1.5mg Inject 1.5 mg into the skin once a week. [facility] Benzonatate 200 MG oral Capsule 03-12 00:00: 00 Yes [id number] 200mg Q.[id number] 3D Take 1 capsule (200 mg total) by mouth 3 times daily as needed for cough. [facility] Ondansetron (ZOFRAN) 8 MG oral tablet 03-12 00:00: 00 10-08 00:00 :00 No [id number] 8mg Take 1 tablet (8 mg total) by mouth every 12 hours as needed for nausea. [facility] Lovastatin 10 MG oral Tablet - 00:00: 00 Yes [id number] 3 10mg Take 1 tablet (10 mg total) by mouth nightly. [facility] Lovastatin 10 MG oral Tablet - 00:00: 00 Yes [id number] 3 10mg QD Take 1 tablet (10 mg total) by mouth nightly. [facility] glipiZIDE 5 MG oral Tablet 07-20 11:29: 51 07-20 00:00 :00 No 5mg Take 1 tablet (5 mg total) by mouth in the morning and 1 tablet (5 mg total) in the evening. Take with meals. [facility] Lovastatin 10 MG oral Tablet 07-20 00:00: 00 Yes [id number] 3 10mg Take 1 tablet (10 mg total) by mouth nightly [facility] south Metformin HCl 1000 MG oral Tablet 07-20 00:00: 00 Yes [id number] 3 1000mg Take 1 tablet (1,000 mg total) by mouth in the morning and 1 tablet (1,000 mg total) in the evening. Take with meals. [facility] south Losartan Potassium-H CTZ 50-12.5 MG oral Tablet 07-20 00:00: 00 Yes [id number] 1{tbl} Take 1 tablet by mouth daily [facility] Dulaglutide (Trulicity) 1.5 MG/0.5ML subcutaneou s Solution Pen-injecto r 07-20 00:00: 00 Yes [id number] 3 1.5mg Inject 1.5 mg into the skin once a week [facility] Diclofenac Sodium 1 % apply externally Gel 07-20 00:00: 00 10-08 00:00 :00 No [id number] 1{appli cation} Apply 1 Applicatio n topically in the morning and 1 Applicatio n in the evening. Apply before meals. [facility] south Carvedilol 6.25 MG oral Tablet 07-20 00:00: 00 06-27 00:00 :00 No [id number] 6.25mg Take 1 tablet (6.25 mg total) by mouth in the morning and 1 tablet (6.25 mg total) in the evening. Take with meals. [facility] glipiZIDE 5 MG oral Tablet 07-20 00:00: 00 05-09 00:00 :00 No [id number] 3 5mg Take 1 tablet (5 mg total) by mouth in the morning and 1 tablet (5 mg total) in the evening. Take with meals. [facility] Gabapentin 100 MG oral Capsule 07-20 00:00: 00 05-09 00:00 :00 No [id number] 100mg Q.5D Take 1 capsule (100 mg total) by mouth 2 times daily as needed (pain) [facility] south Trulicity 1.5 MG/0.5ML subcutaneou s Solution Pen-injecto r 07-19 00:00: 00 07-20 00:00 :00 No [facility] Metformin HCl 1000 MG oral Tablet 07-03 00:00: 00 07-20 00:00 :00 No 1000mg Take 1 tablet (1,000 mg total) by mouth in the morning and 1 tablet (1,000 mg total) in the evening. Take with meals. [facility] south GLUCOVANCE 5-500 MG ORAL TAB 06-23 15:58: 58 Yes None [facility]tered [facility] LISINOPRIL 20 MG ORAL TAB 06-23 15:58: [address] [facility] LOPRESSOR 50 MG ORAL TAB 06-23 15:58: [address] [facility] glycerin/mi neral oil (AGLO ENEMA) (COMPOUNDED ) Enem 225 mL 06-23 15:30: 00 06-23 15:30 :00 No 225mL 225 mL, Rectal, ONCE, 1 dose, On Kriss 06/23/22 at 1030, Routine [facility] enoxaparin (LOVENOX) injection 30 mg 06-23 14:00: 00 Yes 30mg 30 mg, Subcutaneo us, DAILY, First dose on Mon06/23/22 at 0900, Until Discontinu ed, Routine [facility] Sliding Scale Insulin-Reg ular 06-23 12:30: 00 Yes Subcutaneo us, AC+HS, First dose on Mon06/23/22 at 0730, Until Discontinu ed, Routine [facility] pantoprazol e (PROTONIX) injection 40 mg 06-23 04:00: 00 Yes 40mg 40 mg, Slow IV Push, Q24H, First dose on Mon06/22/22 at 2300, Until Discontinu ed [facility] NaCl 0.9% (NS) IV infusion 1,000 mL 06-23 03:15: 00 Yes 1000mL at 50 mL/hr, IV Infusion, CONTINUOUS , Starting on Mon06/22/22 at 2215, Until Discontinu ed, Routine [facility] hydralAZINE (APRESOLINE ) injection 10 mg 06-23 02:53: 57 Yes 10mg 10 mg, Slow IV Push, Q4HPRN, Starting on Mon06/22/22 at 2153, Until Discontinu ed, STAT, DBP=>100; SBP=>180 [facility] ondansetron (ZOFRAN (PF)) injection 4 mg 06-23 01:38: 07 Yes 4mg 4 mg, Slow IV Push, Q6HPRN, Starting on Mon06/22/22 at 2037, Until Discontinu ed, Routine, Nausea and Vomiting (N/V) [facility] morpHINE (2 mg/mL) injection 2 mg 06-23 01:37: 59 06-24 01:36 :59 No 2mg 2 mg, Slow IV Push, Q4HPRN, Starting on Mon06/22/22 at 2036, Until Mon06/23/22 at 2035, Routine, Pain (scale 7-10) [facility] HYDROcodone -acetaminop hen (NORCO 5) 5-325 mg tablet 1 tablet 06-23 01:37: 55 06-25 01:36 :55 No 1{tbl} 1 tablet, Oral, Q6HPRN, Starting on Mon06/22/22 at 2036, Until Mon06/24/22 at 2035, Routine, Pain (scale 4-6) [facility] acetaminoph en (TYLENOL) tablet 650 mg 06-23 01:37: 50 Yes 650mg 650 mg, Oral, Q6HPRN, Starting on Mon06/22/22 at 2036, Until Discontinu ed, Routine, Pain (scale 1-3) [facility] polyethylen e glycol 3350 17 gram powder 06-23 00:00: 00 07-24 04:59 :00 No [id number] 1{packe t} Take 1 Packet by mouth daily for 30 days. [facility] sennosides- docusate sodium 8.6-50 mg per tablet 06-23 00:00: 00 07-09 04:59 :00 No [id number] 1{tbl} Take 1 tablet by mouth daily for 15 days. [facility] Losartan Potassium-H CTZ 50-12.5 MG oral Tablet 06-11 00:00: 00 07-20 00:00 :00 No 1{tbl} Take 1 tablet by mouth daily [facility] Lovastatin 10 MG oral Tablet 05-22 00:00: 00 07-20 00:00 :00 No 10mg Take 1 tablet (10 mg total) by mouth before evening meal [facility] Carvedilol 6.25 MG oral Tablet 09-01 00:00: 00 07-20 00:00 :00 No 6.25mg 1 tablet (6.25 mg total) by other route daily [facility] Macrobid 100 MG Macrobid 100 MG 2020-02 00:00: 00 01-13 00:00 :00 No BID Macrobid 100 MG GlipiZIDE GlipiZIDE 08-12 00:00: 00 Yes Ok Edmond 1 tablet 30 minutes before breakfast [facility] Pen Rincon Pen Rincon 04-18 00:00: 00 Yes Ok Edmond use once daily with Victoza Common [facility] Pen Rincon 32G X 4 MM Pen Rincon 32G X 4 MM 04-18 00:00: 00 No QD Pen Rincon 32G X 4 MM Pen Rincon 32G X 4 MM Pen Rincon 32G X 4 MM 04-18 00:00: 00 No QD Pen Rincon 32G X 4 MM Pen Rincon 32G X 4 MM Pen Rincon 32G X 4 MM 04-18 00:00: 00 No QD Pen Rincon 32G X 4 MM Pen Rincon 32G X 4 MM Pen Rincon 32G X 4 MM 04-18 00:00: 00 No QD Pen Rincon 32G X 4 MM Pen Rincon 32G X 4 MM Pen Rincon 32G X 4 MM 04-18 00:00: 00 No QD Pen Rincon 32G X 4 MM Pen Rincon 32G X 4 MM Pen Rincon 32G X 4 MM 04-18 00:00: 00 No QD Pen Rincon 32G X 4 MM traMADOL (ULTRAM) 50 mg tablet 2009-02 00:00: 00 Yes 50mg Take 1 Tab by mouth every 6 (six) hours as needed for Pain. [facility] cyclobenzap rine (FLEXERIL) 10 mg tablet 2009-02 00:00: 00 Yes 10mg Take 1 Tab by mouth 3 (three) times daily as needed for Muscle Spasms. [facility] CYCLOBENZAP RINE 5 MG ORAL TAB 04-27 00:00: 00 06-23 00:00 :00 No Take one tablet by mouth three times a day [facility] Metformin HCl Metformin HCl Yes Ok Edmond 1 tablet with a meal [facility] Lovastatin Lovastatin Yes Ok Edmond 1 tablet with the evening meal [facility] Lisinopril- Hydrochloro thiazide Lisinopril- Hydrochloro thiazide Yes Ok Edmond take one -1 tablet(s) by mouth twice a day. [facility] Carvedilol Carvedilol Yes Ok Edmond 1 tablet [facility] Lovastatin Lovastatin Yes Ok Edmond TAKE ONE (1) TABLET(S) BY MOUTH ONCE A DAY WITH THE EVENING MEAL. [facility] GlipiZIDE ER 10 MG GlipiZIDE ER 10 MG No GlipiZIDE ER 10 MG Ibuprofen 800 MG Ibuprofen 800 MG No TID Ibuprofen 800 MG Lovastatin 20 MG Lovastatin 20 MG No Lovastatin 20 MG Lisinopril- hydroCHLORO thiazide 20-12.5 MG Lisinopril- hydroCHLORO thiazide 20-12.5 MG No QD Lisinopril -hydroCHLO ROthiazide 20-12.5 MG glipiZIDE ER 10 MG glipiZIDE ER 10 MG No glipiZIDE ER 10 MG Lisinopril- hydroCHLORO thiazide 20-12.5 MG Lisinopril- hydroCHLORO thiazide 20-12.5 MG No QD Lisinopril -hydroCHLO ROthiazide 20-12.5 MG metFORMIN HCl 1000 MG metFORMIN HCl 1000 MG No 1{table t_with_ a_meal} BID metFORMIN HCl 1000 MG Lovastatin 20 MG Lovastatin 20 MG No QD Lovastatin 20 MG Ibuprofen 800 MG Ibuprofen 800 MG No TID Ibuprofen 800 MG Carvedilol 6.25 MG Carvedilol 6.25 MG No 1{table t} BID Carvedilol 6.25 MG glipiZIDE 5 MG glipiZIDE 5 MG No glipiZIDE 5 MG Rybelsus 3 MG Rybelsus 3 MG No Rybelsus 3 MG glipiZIDE ER 5 MG glipiZIDE ER 5 MG No 1{table t_with_ food} BID glipiZIDE ER 5 MG Carvedilol 6.25 MG Carvedilol 6.25 MG No 1{table t} BID Carvedilol 6.25 MG metFORMIN HCl 1000 MG metFORMIN HCl 1000 MG No 1{table t_with_ a_meal} BID metFORMIN HCl 1000 MG Lisinopril- hydroCHLORO thiazide 20-12.5 MG Lisinopril- hydroCHLORO thiazide 20-12.5 MG No QD Lisinopril -hydroCHLO ROthiazide 20-12.5 MG glipiZIDE ER 10 MG glipiZIDE ER 10 MG No glipiZIDE ER 10 MG Ibuprofen 800 MG Ibuprofen 800 MG No TID Ibuprofen 800 MG glipiZIDE 5 MG glipiZIDE 5 MG No glipiZIDE 5 MG Rybelsus 3 MG Rybelsus 3 MG No Rybelsus 3 MG glipiZIDE ER 5 MG glipiZIDE ER 5 MG No 1{table t_with_ food} BID glipiZIDE ER 5 MG Carvedilol 6.25 MG Carvedilol 6.25 MG No 1{table t} BID Carvedilol 6.25 MG metFORMIN HCl 1000 MG metFORMIN HCl 1000 MG No 1{table t_with_ a_meal} BID metFORMIN HCl 1000 MG Lisinopril- hydroCHLORO thiazide 20-12.5 MG Lisinopril- hydroCHLORO thiazide 20-12.5 MG No QD Lisinopril -hydroCHLO ROthiazide 20-12.5 MG glipiZIDE ER 10 MG glipiZIDE ER 10 MG No glipiZIDE ER 10 MG Ibuprofen 800 MG Ibuprofen 800 MG No TID Ibuprofen 800 MG Ibuprofen 800 MG Ibuprofen 800 MG No TID Ibuprofen 800 MG Lisinopril- hydroCHLORO thiazide 20-12.5 MG Lisinopril- hydroCHLORO thiazide 20-12.5 MG No QD Lisinopril -hydroCHLO ROthiazide 20-12.5 MG metFORMIN HCl 1000 MG metFORMIN HCl 1000 MG No 1{table t_with_ a_meal} BID metFORMIN HCl 1000 MG Carvedilol 6.25 MG Carvedilol 6.25 MG No 1{table t} BID Carvedilol 6.25 MG glipiZIDE ER 5 MG glipiZIDE ER 5 MG No 1{table t_with_ food} BID glipiZIDE ER 5 MG Ibuprofen 800 MG Ibuprofen 800 MG No TID Ibuprofen 800 MG Lisinopril- hydroCHLORO thiazide 20-12.5 MG Lisinopril- hydroCHLORO thiazide 20-12.5 MG No QD Lisinopril -hydroCHLO ROthiazide 20-12.5 MG metFORMIN HCl 1000 MG metFORMIN HCl 1000 MG No 1{table t_with_ a_meal} BID metFORMIN HCl 1000 MG Carvedilol 6.25 MG Carvedilol 6.25 MG No 1{table t} BID Carvedilol 6.25 MG glipiZIDE ER 5 MG glipiZIDE ER 5 MG No glipiZIDE ER 5 MG Immunizations Ordered Immunization Name Filled Immunization Name Date Status Comments Source Shingles IM (Shingrix) 2022-08-18 00:00:00 Completed Nuha Boudreaux External Shingles IM (Shingrix) 2022-08-18 00:00:00 Completed Nuha Boudreaux External Shingles IM (Shingrix) 2022-08-18 00:00:00 Completed Nuha Seybold - External Flucelvax - single dose syringe Flucelvax - single dose syringe 2021-11-29 09:03:00 Completed [facility] Flucelvax - single dose syringe Flucelvax - single dose syringe 2021-11-29 09:03:00 Completed [facility] Flucelvax - single dose syringe Flucelvax - single dose syringe 2021-11-29 09:03:00 Completed [facility] Flucelvax - single dose syringe Flucelvax - single dose syringe 2021-11-29 09:03:00 Completed [facility] Influenza, Injectable, Mdck, Preservative Free, Quadrivalt 2021-11-29 00:00:00 Completed Nuha Seybold - External Influenza, Injectable, Mdck, Preservative Free, Quadrivalent 2021-11-29 00:00:00 Completed Nuha Ontiverosold - External Influenza, Injectable, Mdck, Preservative Free, Quadrivalt 2021-11-29 00:00:00 Completed Nuha Danielybold - External Influenza Virus Vaccine, Quadrivalent, High Dose, Age 65 And Up 2021-02-08 00:00:00 Completed Nuha Ontiverosold - External Pneumococcal Vaccine, Polysaccharide 2021-02-08 00:00:00 Completed Nuha Seybold - External Influenza Virus Vaccine, Quadrivalent, High Dose, Age 65 And Up 2021-02-08 00:00:00 Completed Nuha Seybold - External Pneumococcal Vaccine, Polysaccharide 2021-02-08 00:00:00 Completed Nuha Seybold - External Influenza Virus Vaccine, Quadrivalent, High Dose, Age 65 And Up 2021-02-08 00:00:00 Completed Nuha Seybold - External Pneumococcal Vaccine, Polysaccharide 2021-02-08 00:00:00 Completed Nuha Gutiérrez - External SARS-COV-2 COVID-19 MODERNA 12+ YRS VACCINE 2020-05-17 00:00:00 Completed [facility] SARS-COV-2 COVID-19 MODERNA 12+ YRS VACCINE 2020-05-17 00:00:00 Completed [facility] SARS-COV-2 COVID-19 MODERNA 12+ YRS VACCINE 2020-04-19 00:00:00 Completed [facility] SARS-COV-2 COVID-19 MODERNA 12+ YRS VACCINE 2020-04-19 00:00:00 Completed [facility] Adacel (Tdap) Adacel (Tdap) 2019-05-09 14:43:00 Completed [facility] Adacel (Tdap) Adacel (Tdap) 2019-05-09 14:43:00 Completed [facility] Adacel (Tdap) Adacel (Tdap) 2019-05-09 14:43:00 Completed [facility] Adacel (Tdap) Adacel (Tdap) 2019-05-09 14:43:00 Completed [facility] Adacel (Tdap) Adacel (Tdap) 2019-05-09 14:43:00 Completed [facility] Adacel (Tdap) Adacel (Tdap) 2019-05-09 14:43:00 Completed [facility] TDAP > 7 Years-Adacel TDAP > 7 Years-Adacel 2019-05-09 00:00:00 Completed [facility] Tdap- (Boostrix, Adacel) 2019-05-09 00:00:00 Completed Nuha Danielybold - External Tdap- (Boostrix, Adacel) 2019-05-09 00:00:00 Completed Nuha Seybold - External Tdap- (Boostrix, Adacel) 2019-05-09 00:00:00 Completed Nuha Seybold - External Afluria Afluria 2018-11-01 14:06:00 [facility]:06[facility]00 [facility] 2018[facility]11-01 14:06:00 [facility] 2018-11-01 14:06:00 Completed [facility] Afluria Afluria 2018-11-01 14:06:00 Completed [facility] Afluria Afluria 2018-11-01 00:00:00 Completed [facility] Influenza, Seasonal, Injectable, Preservative Free 2018-11-01 00:00:00 Completed Nuha Danielybold - External Influenza, Seasonal, Injectable, Preservative Free 2018-11-01 00:00:00 Completed Nuha Seybold - External Influenza, Seasonal, Injectable, Preservative Free 2018-11-01 00:00:00 [facility]dap- (Boostrix, Adacel) Unknown Completed Nuha ybold - External Influenza, Seasonal, Injectable, Preservative Free Unknown Completed Nuha Ha bold - External Influenza, Injectable, Mdck, Preservative Free, Quadrivalent Unknown Completed Nuha ybold - External Influenza Virus Vaccine, Quadrivalent, High Dose, Age 65 And Up Unknown Completed Nuha Werner eybold - External Pneumococcal Vaccine, Polysaccharide Unknown Completed Nuha Ontiverosol d - External Shingles IM (Shingrix) Unknown Completed Nuha ybold - External Tdap- (Boostrix, Adacel) Unknown Completed Nuha ybold - External Influenza, Seasonal, Injectable, Preservative Free Unknown Completed Nuha Ha bold - External Influenza, Injectable, Mdck, Preservative Free, Quadrivalent Unknown Completed Nuha jaronold - External Influenza Virus Vaccine, Quadrivalent, High Dose, Age 65 And Up Unknown Completed Nuha Werner eybold - External Pneumococcal Vaccine, Polysaccharide Unknown Completed Nuha Ontiverosol d - External Shingles IM (Shingrix) Unknown Completed Nuha jaronold - External Influenza, Injectable, Mdck, Quadrivalent With Preservative Unknown Completed Nuha ybold - External Tdap- (Boostrix, Adacel) Unknown Completed Nuha Seybold - External Influenza, Seasonal, Injectable, Preservative Free Unknown Completed Nuha Ha bold - External Influenza, Injectable, Mdck, Preservative Free, Quadrivalent Unknown Completed Nuha Seybold - External Influenza Virus Vaccine, Quadrivalent, High Dose, Age 65 And Up Unknown Completed Nuha eybold - External Pneumococcal Vaccine, Polysaccharide Unknown Completed Nuha ybol d - External Shingles IM (Shingrix) Unknown Completed Nuha Seybold - External Influenza, Injectable, Mdck, Quadrivalent With Preservative Unknown Completed Nuha Seybold - External Tdap- (Boostrix, Adacel) Unknown [facility], Seasonal, Injectable, Preservative Free Unknown Completed Nuhamarlene Ha bold - External Influenza, Injectable, Mdck, Preservative Free, Quadrivalent Unknown Completed [facility] - External Influenza Virus Vaccine, Quadrivalent, High Dose, Age 65 And Up Unknown [facility], [facility]accharide [facility], Injectable, Mdck, Quadrivalent With Preservative Unknown Completed [facility] - External Tdap- (Boostrix, Adacel) Unknown Completed [facility] - External Influenza, Seasonal, Injectable, Preservative Free Unknown Completed [facility] bold - External Influenza, Injectable, Mdck, Preservative Free, Quadrivalent Unknown Completed [facility] External Influenza Virus Vaccine, Quadrivalent, High Dose, Age 65 And Up Unknown [facility] Pneumococcal Vaccine, Polysaccharide [facility] Shingles [facility] (Shingrix) Unknown Completed [facility] - External Influenza, Injectable, Mdck, Quadrivalent With Preservative Unknown Completed [facility] - External Tdap- (Boostrix, Adacel) Unknown Completed [facility] - External Influenza, Seasonal, Injectable, Preservative Free Unknown Completed Nuhamarlene Ha bold - External Influenza, Injectable, Mdck, Preservative Free, Quadrivalent Unknown Completed [facility] - External Influenza Virus Vaccine, Quadrivalent, High Dose, Age 65 And Up Unknown [facility] Pneumococcal Vaccine, Polysaccharide Unknown [facility] Sh[facility]les [facility] ([facility]hingrix) [facility] Influenza, Injectable, Mdck, Quadrivalent With Preservative Unknown Completed [facility] - External Tdap- (Boostrix, Adacel) Unknown Completed [facility] - External AFLURIA TRIVALENT PF(0.5mL) Unknown [facility] Influenza, Injectable, Mdck, Preservative Free, Quadrivalent Unknown Completed [facility] - External Influenza Virus Vaccine, Quadrivalent, High Dose, Age 65 And Up Unknown Completed Nuha S eybold - External Pneumococcal Vaccine, Polysaccharide Unknown Completed Nuha Ontiverosol d - External Shingles IM (Shingrix) Unknown Completed Nuha Ontiverosold - External Influenza, Injectable, Mdck, Quadrivalent With Preservative Unknown Completed [facility] Seold - External Tdap- (Boostrix, Adacel) Unknown Completed Nuha Danielybold - External AFLURIA TRIVALENT PF(0.5mL) Unknown Completed Nuha Danielybold - External Influenza, Injectable, Mdck, Preservative Free, Quadrivalent Unknown [facility] Influ[facility] Virus Vaccine, Quadrivalent, High Dose, Age 65 And Up Unknown Completed Nuha Werner eybold - External Pneumococcal Vaccine, Polysaccharide Unknown Completed Nuha Ontiverosol d - External Shingles IM (Shingrix) Unknown Completed Nuha Danielybold - External Influenza, Injectable, Mdck, Quadrivalent With Preservative Unknown Completed Nuha Seybold - External FLUAD TRIVALENT PF Influenza Vaccine, Adjuvanted, Preserve Unknown Completed [facility] Seold - External COVID-19 Vaccine(Pfizer)(12yr s+) Unknown [facility]- (Boostrix, Adacel) Unknown [facility] AFLURIA TRIVALENT PF(0.5mL) Unknown Completed [facility] Ontiverosold - External Influenza, Injectable, Mdck, Preservative Free, Quadrivalent Unknown Completed [facility] Seold - External Influenza Virus Vaccine, Quadrivalent, High Dose, Age 65 And Up Unknown Completed Nuha Werner eybold - External Pneumococcal Vaccine, Polysaccharide Unknown Completed Nuha Ontiverosol d - External Shingles IM (Shingrix) Unknown Completed Nuha Danielybold - External Influenza, Injectable, Mdck, Quadrivalent With Preservative Unknown Completed [facility] Seold - External FLUAD TRIVALENT PF Influenza Vaccine, Adjuvanted, Preserve Unknown Completed Nuha ybold - External COVID-19 Vaccine(Pfizer)(12yr s+) Unknown Completed Nuha Seybold - External Pneumococcal Vaccine, Conjugate 20 Unknown Completed [facility]ha Seold - External Vital Signs Vital Name Observation Time Observation Value Comments S ource Systolic blood pressure 2024-03-05 17:37:00 138 mm[Hg] Nuha Ontiverosold - External Diastolic blood pressure 2024-03-05 17:37:00 80 mm[Hg] Nuha Seybold - External Heart rate 2024-03-05 17:37:00 72 /min Nuha Seybold - External Body temperature 2024-03-05 17:37:00 36.44 [place] Nuha Seybold - External Respiratory rate 2024-03-05 17:37:00 18 /min Nuha Seybold - External Body height 2024-03-05 17:37:00 137.2 cm Nuha Seybold - External Body weight 2024-03-05 17:37:00 83.462 kg Nuha Seybold - External BMI 2024-03-05 17:37:00 44.36 kg/m2 Nuha Seybold - External Oxygen saturation in Arterial blood by Pulse oximetry 2024-03-05 17:37:00 97 /min Nuha Seybold - External Systolic blood pressure 2023-12-04 13:40:00 129 mm[Hg] Nuha Seybold - External Diastolic blood pressure 2023-12-04 13:40:00 81 mm[Hg] Nuha Seybold - External Heart rate 2023-12-04 13:40:00 70 /min Nuha Seybold - External Body temperature 2023-12-04 13:40:00 35.89 [place] Nuha Seybold - External Respiratory rate 2023-12-04 13:40:00 18 /min Nuha Seybold - External Body height 2023-12-04 13:40:00 137.2 cm Nuha Seybold - External Body weight 2023-12-04 13:40:00 83.462 kg Nuha Seybold - External BMI 2023-12-04 13:40:00 44.36 kg/m2 Nuha Seybold - External Oxygen saturation in Arterial blood by Pulse oximetry 2023-12-04 13:40:00 95 /min Nuha Seybold - External Systolic blood pressure 2023-10-09 21:01:00 134 mm[Hg] Nuha Seybold - External Diastolic blood pressure 2023-10-09 21:01:00 62 mm[Hg] Nuha Seybold - External Heart rate 2023-10-09 21:01:00 72 /min Nuha Seybold - External Body temperature 2023-10-09 21:01:00 36.67 [place] Nuha Seybold - External Respiratory rate 2023-10-09 21:01:00 20 /min Nuha Seybold - External Body height 2023-10-09 21:01:00 137.2 cm Nuha Seybold - External Body weight 2023-10-09 21:01:00 84.369 kg Nuha Seybold - External BMI 2023-10-09 21:01:00 44.85 kg/m2 Nuha Seybold - External Oxygen saturation in Arterial blood by Pulse oximetry 2023-10-09 21:01:00 99 /min Nuha Seybold - External Systolic blood pressure 2023-06-28 19:30:00 146 mm[Hg] Nuha Seybold - External Diastolic blood pressure 2023-06-28 19:30:00 71 mm[Hg] Nuha Seybold - External Heart rate 2023-06-28 19:30:00 68 /min Nuha Seybold - External Body temperature 2023-06-28 19:30:00 36.61 [place] Nuha Seybold - External Respiratory rate 2023-06-28 19:30:00 18 /min Nuha Seybold - External Body height 2023-06-28 19:30:00 137.2 cm Nuha Seybold - External Body weight 2023-06-28 19:30:00 85.276 kg Nuha Seybold - External BMI 2023-06-28 19:30:00 45.33 kg/m2 Nuha Seybold - External Oxygen saturation in Arterial blood by Pulse oximetry 2023-06-28 19:30:00 94 /min Nuha Seybold - External Systolic blood pressure 2023-05-10 16:17:00 163 mm[Hg] Nuha Seybold - External Diastolic blood pressure 2023-05-10 16:17:00 75 mm[Hg] Nuha Seybold - External Heart rate 2023-05-10 16:17:00 63 /min Nuha Seybold - External Body temperature 2023-05-10 16:17:00 36.17 [place] Nuha Seybold - External Respiratory rate 2023-05-10 16:17:00 15 /min Nuha Seybold - External Body height 2023-05-10 16:17:00 134.6 cm Nuha Seybold - External Body weight 2023-05-10 16:17:00 88.905 kg Nuha Seybold - External BMI 2023-05-10 16:17:00 49.06 kg/m2 Nuha Seybold - External Oxygen saturation in Arterial blood by Pulse oximetry 2023-05-10 16:17:00 99 /min Nuha Seybold - External Systolic blood pressure 2023-01-31 21:39:00 136 mm[Hg] Nuha Seybold - External Diastolic blood pressure 2023-01-31 21:39:00 70 mm[Hg] Nuha Seybold - External Heart rate 2023-01-31 21:39:00 72 /min Nuha Seybold - External Body temperature 2023-01-31 21:39:00 37.06 [place] Nuha Seybold - External Respiratory rate 2023-01-31 21:39:00 16 /min Nuha Seybold - External Body height 2023-01-31 21:39:00 137.2 cm Nuha Seybold - External Body weight 2023-01-31 21:39:00 81.704 kg Nuha Seybold - External BMI 2023-01-31 21:39:00 43.43 kg/m2 Nuha Seybold - External Oxygen saturation in Arterial blood by Pulse oximetry 2023-01-31 21:39:00 100 /min Nuha Seybold - External Systolic blood pressure 2022-12-07 15:52:00 147 mm[Hg] Nuha Seybold - External Diastolic blood pressure 2022-12-07 15:52:00 75 mm[Hg] Nuha Seybold - External Heart rate 2022-12-07 15:52:00 62 /min Nuha Seybold - External Respiratory rate 2022-12-07 15:52:00 16 /min Nuha Seybold - External Body height 2022-12-07 15:52:00 137.2 cm Nuha Seybold - External Body weight 2022-12-07 15:52:00 81.647 kg Nuha Seybold - External BMI 2022-12-07 15:52:00 43.40 kg/m2 Nuha Seybold - External Systolic blood pressure 2022-11-01 19:45:00 147 mm[Hg] Nuha Seybold - External Diastolic blood pressure 2022-11-01 19:45:00 75 mm[Hg] Nuha Seybold - External Heart rate 2022-11-01 19:45:00 67 /min Nuha Seybold - External Body temperature 2022-11-01 19:45:00 36.61 [place] Nuha Seybold - External Respiratory rate 2022-11-01 19:45:00 13 /min Nuha Seybold - External Body height 2022-11-01 19:45:00 137.2 cm Nuha Seybold - External Body weight 2022-11-01 19:45:00 83.915 kg Nuha Seybold - External BMI 2022-11-01 19:45:00 44.61 kg/m2 Nuha Seybold - External Oxygen saturation in Arterial blood by Pulse oximetry 2022-11-01 19:45:00 99 /min Nuha Seybold - External Systolic blood pressure 2022-09-22 16:14:00 140 mm[Hg] Asymptomatic - pt states she took her BP meds this morning Nuha Seybold - External Diastolic blood pressure 2022-09-22 16:14:00 83 mm[Hg] Asymptomatic - pt states she took her BP meds this morning Nuha Seybold - External Heart rate 2022-09-22 16:14:00 60 /min Nuha Seybold - External Body temperature 2022-09-22 16:14:00 36.78 [place] Nuha Danielybold - External Respiratory rate 2022-09-22 16:14:00 18 /min Nuha Danielybold - External Body height 2022-09-22 16:14:00 137.2 cm Nuha Seybold - External Body weight 2022-09-22 16:14:00 81.92 kg Nuha Seybold - External BMI 2022-09-22 16:14:00 43.54 kg/m2 Nuha Seybold - External Oxygen saturation in Arterial blood by Pulse oximetry 2022-09-22 16:14:00 100 /min Nuha Seybold - External Systolic blood pressure 2022-08-18 14:49:00 143 mm[Hg] Nuha Seybold - External Diastolic blood pressure 2022-08-18 14:49:00 72 mm[Hg] Nuha Seybold - External Heart rate 2022-08-18 14:49:00 68 /min Nuha Seybold - External Body temperature 2022-08-18 14:49:00 36.61 [place] Nuha Seybold - External Respiratory rate 2022-08-18 14:49:00 14 /min Nuha Seybold - External Body height 2022-08-18 14:49:00 137.2 cm Nuha Seybold - External Body weight 2022-08-18 14:49:00 81.647 kg Nuha Seybold - External BMI 2022-08-18 14:49:00 43.40 kg/m2 Nuha Seybold - External Oxygen saturation in Arterial blood by Pulse oximetry 2022-08-18 14:49:00 99 /min Nuha Seybold - External Systolic blood pressure 2022-07-20 15:43:00 138 mm[Hg] Nuha Seybold - External Diastolic blood pressure 2022-07-20 15:43:00 70 mm[Hg] Nuha Seybold - External Heart rate 2022-07-20 15:43:00 64 /min Nuha Seybold - External Body temperature 2022-07-20 15:43:00 35.72 [place] Nuha Seybold - External Respiratory rate 2022-07-20 15:43:00 16 /min Nuha Seybold - External Body height 2022-07-20 15:43:00 137.2 cm Nuha Seybold - External Body weight 2022-07-20 15:43:00 83.643 kg Nuha Seybold - External BMI 2022-07-20 15:43:00 44.46 kg/m2 Nuha Seybold - External Oxygen saturation in Arterial blood by Pulse oximetry 2022-07-20 15:43:00 99 /min Nuha Seybold - External Systolic blood pressure 2022-06-23 20:44:00 145 mm[Hg] [facility] Diastolic blood pressure 2022-06-23 20:44:00 75 mm[Hg] [facility] Heart rate 2022-06-23 20:44:00 66 /min [facility] Body temperature 2022-06-23 20:44:00 36.39 [place] [facility] Respiratory rate 2022-06-23 20:44:00 18 /min [facility] Oxygen saturation in Arterial blood by Pulse oximetry 2022-06-23 20:44:00 95 /min [facility] Body weight 2022-06-23 08:57:00 77.973 kg [facility] BMI 2022-06-23 08:57:00 43.03 kg/m2 [facility] Body height 2022-06-23 01:01:00 134.6 cm [facility] height 2021-12-24 10:50:00 59 [in_i] [facility] weight 2021-12-24 10:50:00 168.9 [lb_av] [facility] temperature 2021-12-24 10:50:00 97.5 [degF] [facility] bmi 2021-12-24 10:50:00 34.11 kg/m2 [facility] oximetry 2021-12-24 10:50:00 98 % [facility] respiratory rate 2021-12-24 10:50:00 18 /min [facility] blood pressure systolic 2021-12-24 10:50:00 132 mm[Hg] [facility] blood pressure diastolic 2021-12-24 10:50:00 76 mm[Hg] [facility] height 2021-11-29 08:30:00 59 [in_i] [facility] weight 2021-11-29 08:30:00 166.6 [lb_av] [facility] temperature 2021-11-29 08:30:00 97.5 [degF] [facility] bmi 2021-11-29 08:30:00 33.65 kg/m2 [facility] oximetry 2021-11-29 08:30:00 99 % [facility] respiratory rate 2021-11-29 08:30:00 18 /min [facility] blood pressure systolic 2021-11-29 08:30:00 138 mm[Hg] [facility] blood pressure diastolic 2021-11-29 08:30:00 78 mm[Hg] [facility] height 2021-01-12 11:50:00 59 [in_i] [facility] weight 2021-01-12 11:50:00 173 [lb_av] [facility] temperature 2021-01-12 11:50:00 98 [degF] [facility] bmi 2021-01-12 11:50:00 34.94 kg/m2 [facility] blood pressure systolic 2021-01-12 11:50:00 135 mm[Hg] [facility] blood pressure diastolic 2021-01-12 11:50:00 72 mm[Hg] [facility] height 2020-10-06 10:10:00 59 [in_i] [facility] weight 2020-10-06 10:10:00 171.1 [lb_av] [facility] temperature 2020-10-06 10:10:00 97.3 [degF] [facility] bmi 2020-10-06 10:10:00 34.55 kg/m2 [facility] oximetry 2020-10-06 10:10:00 97 % [facility] respiratory rate 2020-10-06 10:10:00 17 /min [facility] blood pressure systolic 2020-10-06 10:10:00 134 mm[Hg] [facility] blood pressure diastolic 2020-10-06 10:10:00 67 mm[Hg] [facility] height 2020-07-01 11:00:00 59 [in_i] [facility] weight 2020-07-01 11:00:00 177.6 [lb_av] [facility] temperature 2020-07-01 11:00:00 97.2 [degF] [facility] bmi 2020-07-01 11:00:00 35.87 kg/m2 [facility] oximetry 2020-07-01 11:00:00 96 % [facility] respiratory rate 2020-07-01 11:00:00 19 /min [facility] blood pressure systolic 2020-07-01 11:00:00 133 mm[Hg] [facility] blood pressure diastolic 2020-07-01 11:00:00 65 mm[Hg] [facility] height 2020-05-05 08:20:00 59 [in_i] [facility] weight 2020-05-05 08:20:00 178.5 [lb_av] [facility] temperature 2020-05-05 08:20:00 97.3 [degF] [facility] bmi 2020-05-05 08:20:00 36.05 kg/m2 [facility] oximetry 2020-05-05 08:20:00 97 % [facility] respiratory rate 2020-05-05 08:20:00 17 /min [facility] blood pressure systolic 2020-05-05 08:20:00 123 mm[Hg] [facility] blood pressure diastolic 2020-05-05 08:20:00 65 mm[Hg] [facility] Procedures Procedure Date / Time Performed Performing Clinician Source QUANTAFLO 2023-12-04 09:20:45 Fern Lassiter - External POCT GLUCOSE (AUTOMATED) 2022-06-23 16:52:00 Axel Yoder [facility] PROTHROMBIN TIME / INR 2022-06-23 15:45:00 Can Sinclair [facility] HEPATITIS B SURFACE ANTIGEN 2022-06-23 15:45:00 Elisa Tabares [facility] LACTIC ACID WHOLE BLOOD 2022-06-23 15:45:00 Unruly Tabares [facility] XR KUB 2022-06-23 15:37:23 Axel Yoder [facility] POCT GLUCOSE (AUTOMATED) 2022-06-23 12:49:00 [facility][id number][facility] (ALB,T.PRO,BILI T,BU/BC,ALT,AST,ALK PHOS) 2022-06-23 02:50:00 [facility] BASIC METABOLIC PANEL (NA, K, CL, CO2, GLUCOSE, BUN, CREATININE, CA) 2022-06-23 02:50:00 Mackenzie Yoderhosh [facility] CBC WITHOUT DIFF 2022-06-23 02:50:00 Axel Yoder [facility] GLYCOSYLATED HEMOGLOBIN (A1C) 2022-06-23 02:50:00 Jabier Tobin [facility] LACTIC ACID WHOLE BLOOD 2022-06-23 02:49:00 Maco Yoder [facility] ASSIGNMENT OF BENEFITS 2022-06-23 01:32:27 Docto r Unassigned, [place] [facility] CONSENT/REFUSAL FOR DIAGNOSIS AND TREATMENT 2022-06-23 01:31:48 Doctor Unassigned, [place] [facility] Encounters Start Date/Time End Date/Time Encounter Type Admission Type Attending Clinicians Care Facility Care Department Encounter ID Source 2021-12-25 11:31:00 Outpatient [place], Pending sale to [facility] [id number] [facility] 2021-12-22 11:14:00 Outpatient [place], Pending sale to [facility] [id number] [facility] 2021-03-17 14:17:00 Outpatient [place], Pending sale to [facility] [id number] [facility] 2021-03-17 13:52:00 Outpatient [place], Pending sale to [facility] [id number] [facility] 2021-03-17 13:28:36 Outpatient [place], Pending sale to [facility] [id number] [facility] 2021-03-17 13:02:45 [place] [facility] [id number] [facility] 2021-03-17 12:59:53 [place] [facility] [id number] [facility] 2021-03-17 12:40:32 [place] [facility] [id number] [facility] 2021-03-17 12:17:37 [place] [facility] [id number] [facility] 2021-03-17 12:15:57 [place] [facility] [id number] [facility] 2021-03-17 12:15:16 [place] [facility] [id number] [facility] 2021-03-17 11:27:19 [place] [facility] [id number] [facility] 2021-03-17 11:14:56 [place] [facility] [facility] [id number] [facility] 2021-03-17 11:14:48 [place] [facility] [id number] [facility] 2021-03-17 11:14:15 [place] [facility] [id number] [facility] 2021-03-17 11:04:42 [place] [facility] ST[facility] [id number] [facility] 2021-03-17 11:03:32 [place] [facility] [id number] [facility] 2024-05-27 16:00:00 2024-05-27 16:00:00 Outpatient DARRYN DUNHAM [id number] [facility] 2024-04-18 16:00:00 2024-04-18 16:00:00 Outpatient PREZAS, FERN HUFF NUHA [id number] Nuha Seybaxel 2024-03-05 11:15:00 2024-03-05 11:15:00 Outpatient PREZAS, FERN HUFF NUHA [id number] Nuha Seybaxel 2024-03-02 00:00:00 2024-03-02 00:00:00 Outpatient PREZAS, FERN HUFF NUHA [id number] [facility] 2024-02-01 00:00:00 2024-02-01 00:00:00 Outpatient PREZAS, FERN HUFF NUHA [id number] [facility] 2024-01-19 00:00:00 2024-01-19 00:00:00 Outpatient PREZAS, FERN HUFF NUHA [id number] [facility] 2024-01-08 00:00:00 2024-01-08 00:00:00 Outpatient PREZAS, FERN HUFF NUHA [id number] [facility] 2024-01-08 00:00:00 2024-01-08 00:00:00 Outpatient PREZAS, FERN HUFF NUHA [id number] [facility] 2024-01-04 08:45:00 2024-01-04 08:45:00 Outpatient LAB90 NUHA HUFF [id number] Nuha Seybold 2024-01-04 08:15:00 2024-01-04 08:15:00 Outpatient ALFONZO ESPARZA NUHA HUFF [id number] Nuha Seybold 2024-01-03 09:00:00 2024-01-03 09:00:00 Outpatient NUHA HUFF [id number] Nuha Seybold 2024-01-03 08:30:00 2024-01-03 08:30:00 Outpatient VILMA ALFONZO HUFF [id number] Nuha Seybold 2023-12-22 00:00:00 2023-12-22 00:00:00 Outpatient PREZAS, FERN NUHA HUFF [id number] Nuha Seybold 2023-12-04 09:45:00 2023-12-04 09:45:00 Outpatient LAB90 NUHA HUFF [id number] [facility] 2023-12-04 08:45:00 2023-12-04 08:45:00 Outpatient PREZADebbi, FERN HUFF [id number] Nuha Danielybaxel 2023-11-10 00:00:00 2023-11-10 00:00:00 Outpatient PREZAS, FERN HUFF [id number] [facility] 2023-10-20 00:00:00 2023-10-20 00:00:00 Outpatient PREZAS, FERN HUFF NUHA [id number] [facility] 2023-10-20 00:00:00 2023-10-20 00:00:00 Outpatient PREZAS, FERN HUFF NUHA [id number] [facility] 2023-10-19 00:00:00 2023-10-19 00:00:00 Outpatient PREZAS, FERN HUFF NUHA [id number] [facility] 2023-10-18 11:50:00 2023-10-18 11:50:00 Outpatient NUHA NUHA [id number] [facility] 2023-10-18 11:45:00 2023-10-18 11:45:00 Outpatient NUHA NUHA [id number] [facility] 2023-10-18 11:40:00 2023-10-18 11:40:00 Outpatient NUHA NUHA [id number] [facility] 2023-10-18 11:25:00 2023-10-18 11:25:00 Outpatient LAB47 NUHA NUHA [id number] [facility] 2023-10-09 16:00:00 2023-10-09 16:00:00 Outpatient PREZASFERN NUHA [id number] [facility] 2023-09-20 00:00:00 2023-09-20 00:00:00 Outpatient PREZAS, FERN HUFF NUHA [id number] [facility] 2023-09-19 08:00:00 2023-09-19 08:00:00 Outpatient LAB90 NUHA NUHA [id number] [facility] 2023-09-13 00:00:00 2023-09-13 00:00:00 Outpatient PREZAS, FERN HUFF NUHA [id number] Nuha Seybold 2023-09-07 00:00:00 2023-09-07 00:00:00 Outpatient PREZAS, FERN HUFF NUHA [id number] Nuha Seybold 2023-07-04 00:00:00 2023-07-04 00:00:00 Outpatient PREZAS, FERN HUFF NUHA [id number] [facility] 2023-07-03 00:00:00 2023-07-03 00:00:00 Outpatient PREZAS, FERN HUFF NUHA [id number] [facility] 2023-06-28 14:30:00 2023-06-28 14:30:00 Outpatient PREZAS, FERN HUFF NUHA [id number] [facility] 2023-05-23 08:20:00 2023-05-23 08:20:00 Outpatient LAB90 NUHA NUHA [id number] [facility] 2023-05-22 14:30:00 2023-05-22 14:30:00 Outpatient ROLY, DARRYN NUHA NUHA [id number] Nuha Seybold 2023-05-10 11:15:00 2023-05-10 11:15:00 Outpatient PREZAS, FERN NUHA HUFF [id number] Nuha Seybold 2023-05-10 00:00:00 2023-05-10 00:00:00 Outpatient PREZAS, FERN NUHA HUFF [id number] Nuha Seybold 2023-05-08 09:20:00 2023-05-08 09:20:00 Outpatient LAB90 NUHA HUFF [id number] Nuha Seybold 2023-05-02 13:45:00 2023-05-02 13:45:00 Outpatient PREZAS, FERN NUHA HUFF [id number] Nuha Seybold 2023-04-09 00:00:00 2023-04-09 00:00:00 Outpatient PREZAS, FERN NUHA HUFF [id number] [facility] 2023-04-05 00:00:00 2023-04-05 00:00:00 Outpatient FERN LASSITER NUHA [id number] Nuha Seybold 2023-04-03 11:20:00 2023-04-03 11:20:00 Outpatient LAB90 NUHA HUFF [id number] Nuha Seybold 2023-03-24 00:00:00 2023-03-24 00:00:00 Outpatient FERN LASSITER NUHA HUFF [id number] [facility] 2023-03-23 14:30:00 2023-03-23 14:30:00 Outpatient ROLYDARRYN THOMSON NUHA HUFF [id number] [facility] 2023-03-23 09:40:00 2023-03-23 09:40:00 Outpatient LAB90 NUHA HUFF [id number] [facility] 2023-03-23 00:00:00 2023-03-23 00:00:00 Outpatient FERN LASSITER NUHA HUFF [id number] [facility] 2023-03-17 16:00:00 2023-03-17 16:00:00 Outpatient ROLYDARRYN THOMSON NUHA HUFF [id number] Nuha Seybold 2023-03-12 11:30:00 2023-03-12 11:30:00 Outpatient STEVENVY PARKER NUHA HUFF [id number] Nuha Seybold 2023-03-12 00:00:00 2023-03-12 00:00:00 Outpatient ALVINO PEREA [id number] Nuha Seybold 2023-03-12 00:00:00 2023-03-12 00:00:00 Outpatient PREFERN VELEZ NUHA HUFF [id number] Nuha Seybold 2023-03-12 00:00:00 2023-03-12 00:00:00 Outpatient MARIKA HIDALGO [id number] Nuha Seybold 2023 00:00:00 2023 00:00:00 Outpatient PREFERN VELEZ NUHA HUFF [id number] Nuha Gutiérrez 2023-03-07 00:00:00 2023-03-07 00:00:00 Outpatient PREZAS, FERN HUFF NUHA [id number] Nuha Gutiérrez 2023-03-07 00:00:00 2023-03-07 00:00:00 Outpatient PREZAS, FERN HUFF NUHA [id number] Nuha Danielybaxel 2023-03-02 00:00:00 2023-03-02 00:00:00 Outpatient PREZAS, FERN HUFF NUHA [id number] [facility] 2023-03-01 00:00:00 2023-03-01 00:00:00 Outpatient PREZAS, FERN HUFF NUHA [id number] [facility]23-03-01 00:00:00 2023-03-01 00:00:00 Outpatient PREZAS, FERN HUFF NUHA [id number] [facility] 2023-02-28 08:10:00 2023-02-28 08:10:00 Outpatient LAB90 NUHA NUHA [id number] [facility] 2023-02-27 00:00:00 2023-02-27 00:00:00 Outpatient PREZAS, FERN HUFF NUHA [id number] [facility] 2023-02-27 00:00:00 2023-02-27 00:00:00 Outpatient PREZAS, FERN PEREZMARLENE HUFF [id number] [facility] 2023-02-22 00:00:00 2023-02-22 00:00:00 Outpatient PREZAS, FERN PEREZMARLENE HUFF [id number] [facility] 2023-02-17 00:00:00 2023-02-17 00:00:00 Outpatient PREZAS, FERN PEREZMARLENE HUFF [id number] [facility] 2023-02-14 09:40:00 2023-02-14 09:40:00 Outpatient LAB90 NUHA HUFF [id number] Nuha Seybold 2023-02-06 00:00:00 2023-02-06 00:00:00 Outpatient PREZAS, FERN NUHA HUFF [id number] Nuha Seybold 2023-01-31 15:30:00 2023-01-31 15:30:00 Outpatient FERN LASSITER NUHA [id number] Nuha Danielaxel 2023-01-27 00:00:00 2023-01-27 00:00:00 Outpatient FERN LASSITER NUHA [id number] Nuha Gutiérrez 2023-01-25 10:30:00 2023-01-25 10:30:00 Outpatient LAB90 NUHA HUFF [id number] [facility] 2022-12-29 12:30:00 2022-12-29 12:30:00 Outpatient NUHA HUFF [id number] [facility] 2022-12-29 00:00:00 2022-12-29 00:00:00 Outpatient FERN LASSITER NUHA [id number] [facility] 2022-12-28 15:30:00 2022-12-28 15:30:00 Outpatient TRED47 [facility]HA [facility] [id number] [facility]28 14:45:00 2022-12-28 14:45:00 Outpatient LAB47 NUHA HUFF [id number] [facility]22-12-28 13:55:00 2022-12-28 13:55:00 Outpatient DARLYN AVILA [id number] [facility] 2022-12-28 00:00:00 2022-12-28 00:00:00 Outpatient DARLYN AVILA [id number] [facility] 2022-12-14 09:00:00 2022-12-14 09:00:00 Outpatient DESTINY HUFF [id number] [facility] 2022-12-08 00:00:00 2022-12-08 00:00:00 Outpatient NUHA HUFF [id number] [facility] 2022-12-07 12:00:00 2022-12-07 12:00:00 Outpatient LAB47 NUHA HUFF [id number] [facility] 2022-12-07 11:30:00 2022-12-07 11:30:00 Outpatient NICHO PULLIAM [id number] [facility] 2022-12-07 10:40:00 2022-12-07 10:40:00 Outpatient NUHA HUFF [id number] Nuha Seybold 2022-11-11 00:00:00 2022-11-11 00:00:00 Outpatient PREZAS, FERN HUFF NUHA [id number] [facility] 2022-11-02 00:00:00 2022-11-02 00:00:00 Outpatient PREZAS, FERN NUHA NUHA [id number] [facility] 2022-11-01 15:30:00 2022-11-01 15:30:00 Outpatient LAB90 NUHA HUFF [id number] [facility] 2022-11-01 14:45:00 2022-11-01 14:45:00 Outpatient PREZAS, FERN NUHA HUFF [id number] [facility] 2022-09-30 07:30:00 2022-09-30 07:30:00 Outpatient NUHA HUFF [id number] [facility] 2022-09-22 12:10:00 2022-09-22 12:10:00 Outpatient LAB45 NUHA HUFF [id number] [facility] 2022-09-22 11:00:00 2022-09-22 11:00:00 Outpatient ROLY, DARRYN NUHA HUFF [id number] [facility] 2022-09-20 00:00:00 2022-09-20 00:00:00 Outpatient PREZAS, FERN NUHA HUFF [id number] [facility] 2022-08-31 11:15:00 2022-08-31 11:15:00 Outpatient ALEJANDRA, ESPERANZA NUHA HUFF [id number] Nuha Seybold 2022-08-29 00:00:00 2022-08-29 00:00:00 Outpatient ONLY, NICKY HUFF [id number] Nuha Seybold 2022-08-28 00:00:00 2022-08-28 00:00:00 Outpatient PREZAS, FERN NUHA HUFF [id number] [facility] 2022-08-19 00:00:00 2022-08-19 00:00:00 Outpatient ISAURAZAFERN Werner [id number] [facility] 2022-08-18 11:15:00 2022-08-18 11:15:00 Outpatient LAB90 NUHA HUFF [id number] [facility] 2022-08-18 10:30:00 2022-08-18 10:30:00 Outpatient FERN LASSITER [id number] [facility] 2022-08-12 00:00:00 2022-08-12 00:00:00 Outpatient FERN LASSITER [id number] [facility] 2022-08-11 11:05:00 2022-08-11 11:05:00 Outpatient LAB90 NUHA HUFF [id number] [facility] 2022-08-03 12:30:00 2022-08-03 12:30:00 Outpatient NUHA HUFF [id number] [facility] 2022-07-29 00:00:00 2022-07-29 00:00:00 Outpatient FERN LASSITER [id number] [facility] 2022-07-20 11:00:00 2022-07-20 11:00:00 Outpatient FERN LASSITER [id number] [facility] 2022-06-24 00:00:00 2022-06-24 00:00:00 Transition of Care Nancy Larson ..[id number] [facility] 2022-06-22 19:10:00 2022-06-23 15:58:00 Inpatient AXEL HUERTAS [facility] [id number] [facility] 2022-06-22 19:10:00 2022-06-23 15:58:00 Hospital Encounter Hank Robbins Santhosh Morris, David [facility] ..[id number] [facility] 2022-02-04 00:00:00 2022-02-04 00:00:00 (TEL) STLMLC STLMLC [id number] [facility] 2021-12-24 00:00:00 2021-12-24 00:00:00 OFFICE VISIT ESTAB PT LEVEL 4 STLMLC STLMLC [id number] [facility] 2021-11-30 00:00:00 2021-11-30 00:00:00 (TEL) STLMLC STLMLC [id number] [facility] 2021-11-29 00:00:00 2021-11-29 00:00:00 (WELLNESS) Wellness Visit STLMLC STLMLC [id number] [facility] 2021-04-29 00:00:00 2021-04-29 00:00:00 (TEL) STLMLC STLMLC [id number] [facility] 2021-01-12 00:00:00 2021-01-12 00:00:00 OFFICE VISIT ESTAB PT LEVEL 4 STLMLC STLMLC [id number] [facility] 2021-01-08 00:00:00 2021-01-08 00:00:00 (TEL) STLMLC STLMLC [id number] [facility] 2020-10-19 00:00:00 2020-10-19 00:00:00 (TEL) STLMLC STLMLC [id number] [facility] 2020-10-06 00:00:00 2020-10-06 00:00:00 PREV VISIT EST AGE 40-64 STLMLC STLMLC [id number] [facility] 2020-09-30 00:00:00 2020-09-30 00:00:00 (TEL) STLMLC STLMLC [id number] [facility] 2020-07-01 00:00:00 2020-07-01 00:00:00 OFFICE VISIT ESTAB PT LEVEL 4 STLMLC STLMLC [id number] [facility] 2020-06-25 00:00:00 2020-06-25 00:00:00 (TEL) STLMLC STLMLC [id number] [facility] 2020-05-05 00:00:00 2020-05-05 00:00:00 OFFICE VISIT ESTAB PT LEVEL 4 STLMLC STLMLC [id number] [facility] 2020-02-06 00:00:00 2020-02-06 00:00:00 Outpatient STLMLC STLMLC [id number] [facility] 2019-11-12 00:00:00 2019-11-12 00:00:00 Outpatient STLMLC STLMLC [id number] [facility] 2019-11-07 08:50:00 2019-11-07 08:50:[address] [facility] [id number] [facility] 2019-08-08 15:01:00 2019-08-08 15:01:[address] [facility] [id number] [facility] 2019-08-08 14:52:00 2019-08-08 14:52:[address] [facility] [id number] [facility] 2019-08-08 14:15:00 2019-08-08 14:15:[address] [facility] [id number] [facility] 2019-07-01 14:23:00 2019-07-01 14:23:[address] [facility] [id number] [facility] 2019-05-09 14:30:00 2019-05-09 14:30:[address] [facility] [id number] [facility] 2019 10:11:00 2019 10:11:[address] [facility] [id number] [facility] 2019-02-27 14:27:00 2019-02-27 14:27:[address] [facility] [id number] [facility] 2019-02-08 10:45:00 2019-02-08 10:45:[address] [facility] [id number] [facility] 2019-01-30 16:53:00 2019-01-30 16:53:[address] [facility] [id number] [facility] 2018-11-02 09:37:00 2018-11-02 09:37:[address] [facility] [id number] [facility] 2018-11-01 14:00:00 2018-11-01 14:00:[address] [facility] [id number] [facility] 2018-10-30 13:58:00 2018-10-30 13:58:[address] [facility] [id number] [facility] 2018-08-02 10:15:00 2018-08-02 10:15:[address] [facility] [id number] [facility] 2018-05-10 10:00:00 2018-05-10 10:00:[address] [facility] [id number] [facility] 2018-04-18 14:00:00 2018-04-18 14:00:[address] [facility] [id number] [facility] 2018-04-17 14:52:00 2018-04-17 14:52:[address] [facility] [id number] [facility] 2018-04-16 14:04:00 2018-04-16 14:04:00 Outpatient [facility] [id number] [facility] 2018-04-12 08:49:00 2018-04-12 08:49:00 Outpatient [facility] [id number] [facility] 2017-10-09 14:30:00 2017-10-09 14:30:00 Outpatient [facility] [id number] [facility] 2017-09-20 13:45:00 2017-09-20 13:45:00 Outpatient [facility] [id number] [facility] Results Test Description Test Time Test Comments Results Result Co mments Source Nuha Gutiérrez ExternalPOCT GLUCOSE (AUTOMATED)2022-06-23 16:55:10* Test Item Value Reference Range Interpretation Comme [facility] POCT GLU (test code = 9760948820) 132 mg/dL 70-110 H Lab Interpretation (test cod e = 70700-5) [facility] [id number] 16:02:18* Test Item Value Reference Range Interpretation Comme [facility] LACTIC ACID (test code = 6593160448) 1.91 mmol/L 0.50-2.20 Lab Interpretation (test cod e = 43796-2) Normal [facility]2022-06-23 12:50:32* Test Item Value Reference Range Interpretation Comme [facility] POCT GLU (test code = 8439992247) 113 mg/dL 70-110 H Lab Interpretation (test cod e = 35575-9) [facility] [id number] 05:17:20* Test Item Value Reference Range Interpretation Comme [facility] HEMOGLOBIN A1c (test code = 18490) 8.8 % 4.2-5.6 H [employer]IR[employer]I DIABETE S [employer]IATION GUIDELINES FOR HGB A1C: PREDIABETES/INCREASED RISK . . . . . . . 5.7-6.4% DIAGNOSIS OF DIABETES . . . . . . . . . >=6.5% WITH CONFIRMATION OR APPROPRIATE SYMPTOMS NOTE: ASSAY MAY BE AFFECTED BY HEMOGLOBINOPATHIES (SICKLE CELL ANEMIA, S-C DISEASE, OTHERS) OR ARTIFICIALLY LOWERED BY DECREASED RED CELL SURVIVAL (HEMOLYTIC ANEMIAS, BLOOD LOSS, ETC.). CONSIDER ALTERNATE TESTING OR LABORATORY CONSULTATION. COMPREHENSIVE METABOLIC [id number] 04:03:43* Test Item Value Reference Range Interpretation Comme nts GLUCOSE (test code = 7) 161 MG/DL 70-99 H BUN (test code = 220) 7 MG/DL 8-23 L CREATININE (test code = 2214) 0.32 MG/DL 0.60-1.30 L eGFR (2020 CKD-EPI) (test code = 57199) 117 ML/MIN/1.73 >60 CALC BUN/CREAT (test code = 2235) 22 RATIO 6-28 SODIUM (test code = 223) 138 MEQ/L 133-146 POTASSIUM (test code = 2228) 3.5 MEQ/L 3.5-5.4 CHLORIDE (test code = 5) 100 MEQ/L 95-107 CARBON DIOXIDE (test code = 6) 22 MEQ/L 19-31 CALCIUM (test code = 2208) 8.9 MG/DL 8.5-10.5 PROTEIN, TOTAL (test code = 2228) 7.2 G/DL 6.1-8.3 ALBUMIN (test code = 220) 4.1 G/DL 3.5-5.2 CALC GLOBULIN (test code = 2240) 3.1 G/DL 1.9-3.7 CALC A/G RATIO (test code = 2234) 1.3 RATIO 1.0-2.6 BILIRUBIN, TOTAL (test code = 2206) 0.8 MG/DL See_Comment [Automated me ssage] The system which generated this result transmitted reference range: <=1.2. The reference range was not used to interpret this result as normal/abnormal. ALKALINE PHOSPHATASE (test code = 2204) 195 U/L 40-140 H AST (test code = 2218) 37 U/L 9-40 ALT (test code = 2219) 36 U/L 5-40 LIPID [id number] 04:03:43* Test Item Value Reference Range Interpretation Comme nts CHOLESTEROL (test code = 2210) 136 MG/DL <200 TRIGLYCERIDES (test code = 2232) 71 MG/DL <150 HDL CHOLESTEROL (test code = 2220) 64 MG/DL >39 CALC LDL CHOL (test code = 2237) 57 MG/DL <100 NOTE: CALCULATED LDL IS BASED ON RADHA-ALEJANDRA METHOD WHICHINCLUDES ADJUSTABLE TRIGLYCERIDE:VLDL CHOLESTEROL RATIO.THIS FACTOR VARIES BY MEASURED TRIGLYCERIDE AND NON-HDLCHOLESTEROL CONCENTRATIONS WITH INCREASED CALCULATED LDL SEENIN HIGHER TRIGLYCERIDE OR LOWER NON-HDL SPECIMENS. FOR MOREINFORMATION, SEE CLIENT ANNOUNCEMENT AT [email or web address] RISK RATIO LDL/HDL (test code = 2238) 0.89 RATIO <3.22 HEPATITIS PANEL, [id number] 03:41:02* Test Item Value Reference Range Interpretation Comme nts HEPATITIS A IgM (test code = 70552) NON-REACTIVE NON-REACTIVE HEPATITIS B CORE IgM (test code = 4644) NON-REACTIVE NON-REACTIVE HEPATITIS B SURF AG (test code = 2739) NON-REACTIVE NON-REACTIVE HEPATITIS C ANTIBODY (test code = 4675) NON-REACTIVE NON-REACTIVE INTERPRETATION HEPATITIS A: (test code = 2552) (NOTE) Hepatitis A sero logy shows no evidence of acute hepatitis A. INTERPRETATION HEPATITIS B: (test code = 35016) (NOTE) Hepatitis B sero logy shows no evidence of acute hepatitis B andno indication of exposure to hepatitis B virus in the previous adrian eight months. INTERPRETATION HEPATITIS C: (test code = 22304) (NOTE) Hepatitis C sero logy shows no evidence of exposure to hepatitisC virus at this time. It can take up to 12 months after exposure tothe hepatitis C virus for antibodies to become detectable in the blood in certain patients. UNLESS OTHERWISE INDICATED, ALL TESTING PERFOR[facility] [address] [place] [address] MOTION STUDY ENGINEER: REE GORMAN M.D. CLIA NUMBER [id number] [place]. [id number] SCR MAMM BILATERAL AP CAD [id number] 10:06:39 Name: Marika : 1960 Sex: F - SCR MAMM BILATERAL AP CAD DIGITALBILATERAL DIGITAL SCREENING MAMMOGRAM 3D/2D WITH CAD: 07/16/2021LINICAL: Asymptomatic. Digital breast tomosynthesis was performed in addition to routine CC and MLO views. Current mammographic imageswere evaluated by [employer] CAD (computer-aided detection) software. No prior exams wereavailable for comparison. The tissue of both breasts is heterogeneously dense. This may lower the sensitivity of mammography. There are benign calcifications in both breasts. No suspicious mass, architectural distortion, malignant type calcification, or lymph node abnormality detected. IMPRESSION: B ENIGNThere is no mammographic evidence of malignancy. Resume annual screening mammography in one year. Vic Almodovar M.D. et/penrad:08/02/2021 10:06:39 Finance Mgr: Irasema Ireland MM, [facility] Mammographyletter sent: BIRADS 1-2 Normal Mammogram BI-RADS: 2 BenignALBUMIN/CREATININE RATIO, URINE, RANDOM 2021-05-28 06:54:51* Test Item Value Reference Range Interpretation Comme nts CREATININE, URINE, RANDOM (test code = 2072) 54.6 MG/DL NOT ESTAB ALBUMIN, URINE, RANDOM (test code = 59686) 0.4 MG/DL NOT ESTAB CALC ALBUMIN/CREAT, RND (test code = 26636) 7 MG/G <30 Note: Albumin/Cr eatinine ratio reference interval reflects ADA and NKF guidelines. UNLESS OTHERWISE INDICATED, ALL TESTING PERFORMED ATCLINICAL PATHOLOGY [employer] [address] [place] [id number] MOTION STUDY ENGINEER: REE GORMAN M.D. CLIA NUMBER [id number] [place]. [id number] COMPREHENSIVE METABOLIC [id number] 05:47:16* Test Item Value Reference Range Interpretation Comme nts GLUCOSE (test code = 2217) 192 MG/DL 70-99 H BUN (test code = 2208) 7 MG/DL 8-23 L CREATININE (test code = 2214) 0.31 MG/DL 0.60-1.30 L eGFR (2020 CKD-EPI) (test code = 15010) 118 ML/MIN/1.73 >60 CALC BUN/CREAT (test code = 2234) 23 RATIO 6-28 SODIUM (test code = 2230) 138 MEQ/L 133-146 POTASSIUM (test code = 2227) 3.5 MEQ/L 3.5-5.4 CHLORIDE (test code = 2214) 103 MEQ/L 95-107 CARBON DIOXIDE (test code = 2205) 20 MEQ/L 19-31 CALCIUM (test code = 2208) 9.2 MG/DL 8.5-10.5 PROTEIN, TOTAL (test code = 2228) 7.3 G/DL 6.1-8.3 ALBUMIN (test code = 2200) 4.2 G/DL 3.5-5.2 CALC GLOBULIN (test code = 2239) 3.1 G/DL 1.9-3.7 CALC A/G RATIO (test code = 2233) 1.4 RATIO 1.0-2.6 BILIRUBIN, TOTAL (test code = 2206) 0.8 MG/DL See_Comment [Automated me ssage] The system which generated this result transmitted reference range: <=1.2. The reference range was not used to interpret this result as normal/abnormal. ALKALINE PHOSPHATASE (test code = 2203) 175 U/L 40-140 H AST (test code = 2217) 39 U/L 9-40 ALT (test code = 2218) 49 U/L 5-40 H LIPID [id number] 05:47:16* Test Item Value Reference Range Interpretation Comme nts CHOLESTEROL (test code = 2209) 173 MG/DL <200 TRIGLYCERIDES (test code = 2231) 87 MG/DL <150 HDL CHOLESTEROL (test code = 2219) 75 MG/DL >39 CALC LDL CHOL (test code = 2236) 81 MG/DL <100 NOTE: CALCULATED LDL IS BASED ON RADHA-ALEJANDRA METHOD WHICHINCLUDES ADJUSTABLE TRIGLYCERIDE:VLDL CHOLESTEROL RATIO.THIS FACTOR VARIES BY MEASURED TRIGLYCERIDE AND NON-HDLCHOLESTEROL CONCENTRATIONS WITH INCREASED CALCULATED LDL SEENIN HIGHER TRIGLYCERIDE OR LOWER NON-HDL SPECIMENS. FOR MOREINFORMATION, SEE CLIENT ANNOUNCEMENT AT [email or web address] RATIO LDL/HDL (test code = 223) 1.08 RATIO <3.22 HEMOGLOBIN [id number] 04:15:14* Test Item Value Reference Range Interpretation Comme nts HEMOGLOBIN A1c (test code = 09846) 7.3 % 4.2-5.6 H EMIRATI DIABETE S ASSOCIATION GUIDELINES FOR HGB A1C: PREDIABETES/INCREASED RISK . . . . . . . 5.7-6.4% DIAGNOSIS OF DIABETES . . . . . . . . . >=6.5% WITH CONFIRMATION OR APPROPRIATE SYMPTOMS NOTE: ASSAY MAY BE AFFECTED BY HEMOGLOBINOPATHIES (SICKLE CELL ANEMIA, S-C DISEASE, OTHERS) OR ARTIFICIALLY LOWERED BY DECREASED RED CELL SURVIVAL (HEMOLYTIC ANEMIAS, BLOOD LOSS, ETC.). CONSIDER ALTERNATE TESTING OR LABORATORY CONSULTATION. ColonoscopyColonoscopy
[2024-03-21] MEDS ORDERED: HYDROCODONE/APAP 7.5/325 MG TAB ONE (16:35)
--- NOTE | 2024-03-21 16:58 | RAD REPORT ---
EXAM:Thorax Wo Con CLINICAL INDICATION: Chest pain/right rib pain TECHNIQUE: CT chest performed.. Axial, sagittal and coronal reconstructions were obtained. One or mor e of the following dose reduction techniques were used: Automated exposure control, adjustment of the mA and/or kV according to the patient size, and/or iterative reconstruction. Unless otherwise specified, incidental findings do not require dedicated imaging follow-up. [id number]. COMPARISON: None FINDINGS: Lungs are clear No mediastinal or hilar lymphadenopathy No pleural effusion. No pericardial effusion A rib fracture not seen IMPRESSION: No acute abnormalities displayed
--- NOTE | 2024-03-21 17:05 | RAD REPORT ---
EXAMINATION: Abdomen Wo Contrast CLINICAL INDICATION: Abdominal pain TECHNIQUE: CT abdomen was performed, without IV contrast, as per department protocol. Axial, sagittal and coronal reconstructions were obtained. One or more of the following dose reduction techniques were used: Automated exposure control, adjustment of the mA and kV according to the patient size, and iterative reconstruction. Unless otherwise specified, incidental findings do not require dedicated imaging follow-up. COMPARISON: No prior exam. FINDINGS: The lack of intravenous and oral contrast limits the sensitivity of this exam for evaluation of solid visceral organs, vascular structures, and bowel. Cirrhotic liver. Distention of the portal vein. Mild to moderate splenomegaly Paraesophageal and left upper quadrant varices. The pancreas, adrenals and kidneys grossly normal. A portion of the appendix is in the [id number] and appears normal. Cholecystectomy. Moderate stranding is present within the mesentery of the mid and right abdomen at about the level of the iliac crest. The visualized bowel is normal caliber and wall thickness. IMPRESSION: Moderate stranding is present within the mesentery of the mid and right abdomen at about the level of the iliac crest.. This is of uncertain etiology but presumably represents a mesenteritis. Cirrhosis
--- NOTE | 2024-03-21 17:51 | ER ---
Nurse's Notes [facility] Name: Liset Langford Age: 64 yrs Sex: Female : 1960 Arrival Date: 03/21/2024 Time: 15:56 Bed 18 Private MD: Diagnosis: Mesenteritis, traumatic Presentation: 03/21 16:14 Chief complaint: Patient states: She has been hurting in her right ribs and it was jb4 worst last night. Coronavirus screen: At this time, the client does not indicate any symptoms associated with coronavirus-19. Ebola Screen: No symptoms or risks identified at this time. Initial Sepsis Screen: Does the patient meet any 2 criteria? No. Patient's initial sepsis screen is negative. Does the patient have a suspected source of infection? No. Patient's initial sepsis screen is negative. Risk Assessment: Do you want to hurt yourself or someone else? Patient reports no desire to harm self or others. Onset of symptoms was March 14, 2024. Transition of care: patient was not received from another setting of care. 16:14 Method Of Arrival: Ambulatory jb4 16:14 Acuity: MUSA 3 jb4 Triage Assessment: 16:17 General: Appears in no apparent distress. comfortable, Behavior is calm, cooperative, jb4 appropriate for age. Pain: Complains of pain in right ribs Pain does not radiate. Pain currently is 8 out of 10 on a pain scale. Neuro: Level of Consciousness is awake, alert, obeys commands, Oriented to person, place, time, situation. Cardiovascular: Patient's skin is warm and dry. Respiratory: Airway is patent Respiratory effort is even, unlabored, Respiratory pattern is regular, symmetrical. Derm: Skin is intact, Skin is pink, warm \T\ dry. Musculoskeletal: Circulation, motion, and sensation intact. Range of motion: intact in all extremities. Historical: - Allergies: 16:16 No Known Allergies; jb4 - PMHx: 16:16 Diabetes - NIDDM; Hypertension; jb4 - PSHx: 16:16 hysterectomy; Cholecystectomy; jb4 - Immunization history:: Adult Immunizations up to date. - Infectious Disease History:: Denies. - Social history:: Smoking status: Patient denies any tobacco usage or history of. Patient/guardian denies using alcohol. Screenin:31 [facility] ED Fall Risk Assessment (Adult) History of falling in the last 3 months, db including since admission No falls in past 3 months (0 pts) Confusion or Disorientation No (0 pts) Intoxicated or Sedated No (0 pts) Impaired Gait No (0 pts) Mobility Assist Device Used No (0 pt) Altered Elimination No (0 pt) Score/Fall Risk Level 0 - 2 = Low Risk Oriented to surroundings, Maintained a safe environment. Abuse screen: Denies threats or abuse. Denies injuries from another. Nutritional screening: No deficits noted. Tuberculosis screening: No symptoms or risk factors identified. Assessment: 16:31 Reassessment: Patient appears in no apparent distress at this time. Patient and/or db family updated on plan of care and expected duration. Pain level reassessed. Patient is alert, oriented x 3, equal unlabored respirations, skin warm/dry/pink. RIGHT UPPER RIB PAIN. General: Appears in no apparent distress. comfortable, Behavior is calm, cooperative. Neuro: Level of Consciousness is awake, alert, obeys commands, Oriented to person, place, time, situation. Respiratory: Airway is patent Respiratory effort is even, unlabored, Respiratory pattern is regular, symmetrical. 17:55 Reassessment: Patient appears in no apparent distress at this time. Patient and/or db family updated on plan of care and expected duration. Pain level reassessed. Patient is alert, oriented x 3, equal unlabored respirations, skin warm/dry/pink. Patient states feeling better. General: Appears. Vital Signs: 16:14 BP 211 / 91; Pulse 72; Resp 16; Temp 98.7; Pulse Ox 99% on R/A; Weight 83.46 kg (R); jb4 Height 5 ft. 2 in. ; 17:55 BP 196 / 89; Pulse 72; Resp 18; Temp 98.7; Pulse Ox 99% ; db 16:14 Body Mass Index 33.65 (83.46 kg, 157.48 cm) jb4 ED Course: 15:59 Patient arrived in ED. im 15:59 Bertha Loja PA-C is PHCP. sb4 15:59 Linus Lazaro MD is Attending Physician. sb4 16:16 Triage completed. jb4 16:16 Arm band placed on right wrist. jb4 16:29 Kacy Patterson, RIKI is Primary Nurse. db 16:[address] via wheelchair. db 16:46 CT Chest Wo Con In Process Unspecified. EDMS 16:46 Abdomen Wo Contrast In Process Unspecified. EDMS 17:55 Patient has correct armband on for positive identification. Provided Education on: db DISCHARGE AND FOLLOWUP. 17:55 No provider procedures requiring assistance completed. Patient did not have IV access db during this emergency room visit. Administered Medications: 17:01 Drug: Hydrocodone-Acetaminophen PO (7.5 mg-325 mg) 1 tabs PO once Route: PO; db 17:56 Follow up: Response: No adverse reaction; Pain is decreased db Medication: 16:31 VIS not applicable for this client. db Outcome: 17:50 Discharge ordered by . sb4 17:55 Discharged to home ambulatory, with family, db 17:55 Condition: stable 17:55 Discharge instructions given to patient, Instructed on discharge instructions, follow up and referral plans. Prescriptions given X 1, 17:56 Patient left the ED. db Signatures: Dispatcher [employer] EDBrody Hernandez RN RN [email or web address] Kacy Patterson RN RN Bertha Herrmann, PA-C PA-C sb4 Lucille Champion
--- NOTE | 2024-03-21 17:51 | EDPHYS ---
Physician Documentation [facility] Name: Liset Langford Age: 64 yrs Sex: Female : 1960 Arrival Date: 03/21/2024 Time: 15:56 Bed 18 Private MD: ED Physician Linus Lazaro HPI: 03/21 16:24 This 64 yrs old Female presents to ER via Ambulatory with complaints of Rib sb4 injury. 16:24 fell 1 week ago on right side, has been having pain in right ribs since. has taken sb4 tylenol intermittently without any improvement. no difficulty breathing or hemoptysis. Historical: - Allergies: 16:16 No Known Allergies; jb4 - PMHx: 16:16 Diabetes - NIDDM; Hypertension; jb4 - PSHx: 16:16 hysterectomy; Cholecystectomy; jb4 - Immunization history:: Adult Immunizations up to date. - Infectious Disease History:: Denies. - Social history:: Smoking status: Patient denies any tobacco usage or history of. Patient/guardian denies using alcohol. ROS: 16:24 Constitutional: Negative for fever, chills, and weight loss, sb4 16:24 MS/extremity: Positive for per HPI, 16:24 All other systems are negative, Exam: 16:24 Constitutional: This is a well developed, well nourished patient who is awake, alert, sb4 and in no acute distress. Head/Face: Normocephalic, atraumatic. Eyes: Extra-ocular motions intact. Periorbital areas with no swelling, redness, or edema. ENT: Mucous membranes moist. Cardiovascular: Regular rate and rhythm with a normal S1 and S2. Respiratory: No increased work of breathing, no retractions or nasal flaring. Skin: Warm, dry with normal turgor. Normal color with no rashes, no lesions, and no evidence of cellulitis. 16:24 Chest/axilla: Inspection: normal, Palpation: tenderness, that is moderate, of the right eighth rib, right ninth rib, right seventh intercostal space and right eighth intercostal space, that totally reproduces the patient's complaints, Vital Signs: 16:14 BP 211 / 91; Pulse 72; Resp 16; Temp 98.7; Pulse Ox 99% on R/A; Weight 83.46 kg (R); jb4 Height 5 ft. 2 in. ; 17:55 BP 196 / 89; Pulse 72; Resp 18; Temp 98.7; Pulse Ox 99% ; db 16:14 Body Mass Index 33.65 (83.46 kg, 157.48 cm) jb4 MDM: 16:10 Medical Screening Exam initiated sb4 17:50 Data reviewed: vital signs, nurses notes, radiologic studies, I have discussed the sb4 patient's presentation/case with the attending Emergency Department Physician; and as a result, I will discharge patient. Historians other than the Patient: Daughter/Son: daughter. Care significantly affected by the following chronic conditions: Diabetes, Hypertension, Liver Disease. Counseling: I had a detailed discussion with the patient and/or guardian regarding the historical points, exam findings, and any diagnostic results supporting the discharge/admit diagnosis, radiology results, the need for outpatient follow up, for definitive care, to return to the emergency department if symptoms worsen or persist or if there are any questions or concerns that arise at home. 03/21 16:23 Order name: CT Chest Wo Con; Complete Time: 16:58 sb4 03/21 16:40 Order name: Abdomen Wo Contrast; Complete Time: 17:07 EDMS Administered Medications: 17:01 Drug: Hydrocodone-Acetaminophen PO (7.5 mg-325 mg) 1 tabs PO once Route: PO; db 17:56 Follow up: Response: No adverse reaction; Pain is decreased db Disposition: 17:59 Co-signature as Attending Physician, Linus Lazaro MD I reviewed the patient's care rt provided by the Advanced Practice Provider and agree with the diagnosis and treatment plan. Disposition Summary: 03/21/24 17:50 Discharge Ordered Notes: Location: Home sb4 Problem: new sb4 Symptoms: have improved sb4 Condition: Stable sb4 Diagnosis - Mesenteritis, traumatic sb4 Followup: sb4 - With: Private Physician - When: As needed - Reason: Recheck today's complaints, Re-evaluation by your physician Discharge Instructions: - Discharge Summary Sheet sb4 - Mesenteric Adenitis, Adult sb4 Forms: - Patient Portal Instructions sb4 - Leadership Thank You Letter sb4 Prescriptions: - Ibuprofen 600 mg Oral Tablet - take 1 tablet ORAL route every 6 hours As needed take with food; 30 tablet; sb4 Refills: 0, Product Selection Permitted Signatures: Dispatcher [employer] Brody Soto, RN RN jb4 Kacy Patterson RN RN Bertha Herrmann, PAFemi PA-C sb4 Linus Lazaro MD MD rt
[2024-03-22 00:23] VITALS: TEMP 98.7; O2SAT 99
[2024-03-22 00:46] VITALS: BP 196/89
== END 2024-03-21 17:56 | disposition home or self-care (01) ==
LOC: ER 15:56
DX: K65.4 Sclerosing mesenteritis (principal)
CPT/HCPCS: 71250; 74150; 99284